=== PATIENT | male | born 1975 | race Caucasian/White ===

== ENCOUNTER 2016-08-24 17:35 | Emergency (ER) | payer OTHER ==
[2016-08-24] MEDS ORDERED: DIPH/PERTUSS(ACELL)/TETANUS VAC/PF 0.5 ML SYR (>=10YO) IM ONE (17:57)
--- NOTE | 2016-08-24 17:58 | ER Document Report ---
ED Medical Screen (RME) - General Chief Complaint: Hand Injury Stated Complaint: LEFT HAND INJURY Time seen by provider: 17:57 Mode of Arrival: Ambulatory Information source: Patient Notes: 41-year-old male had a large ejection screen top portion fall down on his left hand which punctured the skin causing bruising to the dorsal left hand over the proximal left metacarpal at 8:30 this morning.. Tetanus is not current. - Related Data Allergies/Adverse Reactions: No Known Allergies Allergy (Unverified 01/02/13 17:58) Past Medical History - Past Medical History Cardiac Medical History: Reports: Hx Hypercholesterolemia, Hx Hypertension Endocrine Medical History: Reports: Hx Diabetes Mellitus Type 2 Past Surgical History: Reports: Hx Orthopedic Surgery - Immunizations Hx Diphtheria, Pertussis, Tetanus Vaccination: Yes Physical Exam - Vital signs Vitals: Temp Pulse Resp BP Pulse Ox 98.3 F 100 18 148/105 H 99 08/24/16 17:55 08/24/16 17:55 08/24/16 17:55 08/24/16 17:55 08/24/16 17:55 Course - Vital Signs Vital signs: Temp Pulse Resp BP Pulse Ox 98.3 F 100 18 148/105 H 99 08/24/16 17:55 08/24/16 17:55 08/24/16 17:55 08/24/16 17:55 08/24/16 17:55
[2016-08-24] MEDS ORDERED: IBUPROFEN 800 MG TABLET PO ONE (17:59)
--- NOTE | 2016-08-24 18:53 | ER Document Report ---
ED Hand/Wrist Injury - General Chief Complaint: Hand Injury Stated Complaint: LEFT HAND INJURY Time seen by provider: 18:45 Mode of Arrival: Ambulatory Information source: Patient Notes: 41-year-old male presents to ED for pain in his left hand after a projection screen top portion fell down on his hand. There is a small puncture wound to his left hand. TRAVEL OUTSIDE OF THE [place] IN LAST 30 DAYS: No - HPI Injury to: Hand Onset: This morning - Around 8:30 this morning Where: Home, Indoors Timing: Still present Quality of pain: Sharp, Throbbing Severity: Moderate Pain Level: 3 Context: Blow - Related Data Allergies/Adverse Reactions: No Known Allergies Allergy (Unverified 01/02/13 17:58) Past Medical History - General Information source: Patient - Social History Smoking Status: Former Smoker Cigarette use (# per day): No Chew tobacco use (# tins/day): No Smoking Education Provided: No Frequency of alcohol use: Occasional Drug Abuse: None Occupation: [employer] Lives with: Family Family History: Reviewed & Not Pertinent Patient has suicidal ideation: No Patient has homicidal ideation: No - Past Medical History Cardiac Medical History: Reports: Hx Hypercholesterolemia, Hx Hypertension Pulmonary Medical History: Reports: None EENT Medical History: Reports: None Neurological Medical History: Reports: None Endocrine Medical History: Reports: Hx Diabetes Mellitus Type 2 Renal/ Medical History: Reports: None Malignancy Medical History: Reports None GI Medical History: Reports: None Musculoskeltal Medical History: Reports Hx Arthritis, Reports Hx Musculoskeletal Deformity, Reports Hx Musculoskeletal Trauma Skin Medical History: Reports None Psychiatric Medical History: Reports: None Traumatic Medical History: Reports: Hx Fractures - Toes and fingers left ulnar and radius Infectious Medical History: Reports: None Past Surgical History: Reports: Hx Orthopedic Surgery - Left shoulder - Immunizations Immunizations up to date: Yes Hx Diphtheria, Pertussis, Tetanus Vaccination: Yes - 08/24/2016 Review of Systems - Review of Systems Constitutional: No symptoms reported EENT: No symptoms reported Cardiovascular: No symptoms reported Respiratory: No symptoms reported Gastrointestinal: No symptoms reported Genitourinary: No symptoms reported Male Genitourinary: No symptoms reported Musculoskeletal: Other - Pain, bruising, and swelling to the left hand Skin: No symptoms reported Hematologic/Lymphatic: No symptoms reported Neurological/Psychological: No symptoms reported -: Yes All other systems reviewed and negative Physical Exam - Vital signs Vitals: Temp Pulse Resp BP Pulse Ox 98.3 F 100 18 148/105 H 99 08/24/16 17:55 08/24/16 17:55 08/24/16 17:55 08/24/16 17:55 08/24/16 17:55 Interpretation: Normal - General General appearance: Appears well, Alert - HEENT Head: Normocephalic, Atraumatic Eyes: Normal Pupils: PERRL - Respiratory Respiratory status: No respiratory distress Chest status: Nontender Breath sounds: Normal Chest palpation: Normal - Cardiovascular Rhythm: Regular Heart sounds: Normal auscultation Murmur: No - Abdominal Inspection: Normal Distension: No distension Bowel sounds: Normal Tenderness: Nontender Organomegaly: No organomegaly - Back Back: Normal, Nontender - Extremities General upper extremity: Normal temperature General lower extremity: Normal inspection, Nontender, Normal color, Normal ROM , Normal temperature, Normal weight bearing. No: Hemant's sign Wrist: Tender, Ecchymosis, Limited ROM Hand: Tender, Ecchymosis, No evidence of human bite, No evidence of FB, Swelling , Other - Small puncture wound back of left hand. No: Normal, Nontender, Abrasion, Deformity, Dislocation, Instability, Nail injury, Laceration, Tendon deficit - Neurological Neuro grossly intact: Yes Cognition: Normal Orientation: AAOx4 [place] Coma Scale Eye Opening: Spontaneous [place] Coma Scale Verbal: Oriented [place] Coma Scale Motor: Obeys Commands [place] Coma Scale Total: 15 Speech: Normal Motor strength normal: LUE, RUE, LLE, RLE Sensory: Normal - Psychological Associated symptoms: Normal affect, Normal mood - Skin Skin Temperature: Warm Skin Moisture: Dry Skin Color: Normal Course - Re-evaluation Re-evalutation: 08/24/16 20:43 Discussed x-ray with patient and family Will place patient on Keflex. He was given ibuprofen and tetanus immunization in the ED. His wound was cleaned with surgical scrub and saline and dressed with Kerlix and cling. - Vital Signs Vital signs: Temp Pulse Resp BP Pulse Ox 98.1 F 83 15 148/100 H 98 08/24/16 20:56 08/24/16 20:56 08/24/16 20:56 08/24/16 20:56 08/24/16 20:56 - Diagnostic Test Radiology reviewed: Image reviewed, Reports reviewed Discharge - Discharge Clinical Impression: Contusion of left hand Qualifiers: Encounter type: initial encounter Qualified Code(s): S60.222A - Contusion of left hand, initial encounter Puncture wound of left hand Qualifiers: Encounter type: initial encounter Qualified Code(s): S61.432A - Puncture wound without foreign body of left hand, initial encounter Condition: Stable Disposition: HOME, SELF-CARE Instructions: Family Physicians / Practices Additional Instructions: CONTUSION: Your injury has resulted in a contusion -- a crushing of the deep tissues. No injury to important structures was detected during the physician's exam. Contusions vary in the amount of pain they cause, and in the length of time required for healing. Typically, the area will become bruised, and will remain painful to touch for two or three weeks. However, most patients are back to working and playing within a few days. After the initial period of rest and cold-packs, your symptoms (together with the doctor's recommendations) will determine how rapidly you can get back to full activity. Usually this means "do what feels okay, but don't do things that hurt." If re-examination was recommended, it's important to follow up as instructed. Call the doctor or return any time if pain increases, if swelling becomes severe, if you develop numbness or weakness in an injured extremity, or if any other alarming symptoms occur. TETANUS IMMUNIZATION GIVEN: You have been given an immunization against tetanus. Please record this in your records. In general, a booster is needed only once every 10 years. The tetanus shot protects against tetanus or "lockjaw," which is a complication of certain wound infections (the tetanus shot cannot protect against the actual infection). The immunization site may become warm and red due to local reaction. If this occurs, apply warm compresses and take aspirin or ibuprofen to reduce inflammation and discomfort. Return for evaluation if the reaction becomes severe. Cephalexin The antibiotic you've been prescribed is a member of the cephalosporin class. This type of antibiotic covers a wide variety of infections, including those of the skin, lungs, and urinary tract. It's useful for staph infections. This antibiotic is slightly similar to the penicillin family. In rare cases , a person who is allergic to penicillin will also be allergic to this medication. If you have had a severe allergic reaction to penicillin, and have not taken this antibiotic since that time, notify your doctor. Antibiotics which cover many germs ("broad spectrum" antibiotics) are more likely to cause diarrhea or "yeast" infections. Women prone to vaginal yeast problems may suffer an attack after taking this antibiotic. In infants, oral thrush (white spots "stuck" on the cheek) or yeast diaper rash may result. See your doctor if these problems occur. Call at once if you develop itching, hives , shortness of breath, or lightheadedness. Soap Cleansing Gently wash the wound daily using a mild soap (like Ivory, Phisoderm, Neutrogena). Use warm water, rubbing gently until all debris, ooze, and crusting have been washed from the wound. Allow to dry briefly (about 10 minutes) after cleaning. Repeat this cleansing at least three times a day for the first two days and then once or twice a day. Antibiotic Ointment Protection Your wounds are such that dressing them is not practical or optional. After cleansing, you should apply a thin coating of antibiotic ointment ( Bacitracin, not Neosporin) to the wounds at least three times daily. This lessens infection risk, and may decrease the amount of scarring. Use a q-tip or dull butter knife, not your finger, to apply this ointment. Any debris or ooze which builds up in the ointment should be gently rubbed off with a sterile gauze pad. Harder crusting may need to be gently scrubbed off with a clean wash cloth with soap and warm water, perhaps applying a warm, wet wash cloth to the wound for ten minutes first. Development of redness, severe itching, or blistering may mean allergy to the ointment. See the doctor. ICE & ELEVATION: Apply ice packs frequently against the painful area. Many different schedules are recommended, such as "20 minutes on, 20 minutes off" or "one hour ice, two hours rest." If you need to work, you may need to go longer between ice treatments. You should plan to have the area ice packed AT LEAST one- fourth of the time. The ice should be applied over the wrap, tape, or splint, or over a layer of cloth -- not directly against the skin. Some ice bags have a built-in cloth and can be put directly on the skin. Your injured part should be elevated as much as possible over the next 48 hours. Try to keep the injury above the level of the heart. Avoid use of the injured area. Elevation and rest will decrease the swelling. USE OF [id number] IBUPROFEN: Ibuprofen (Advil, Nuprin, Medipren, Motrin IB) is a medication for fever and pain control. In addition, it has anti- inflammatory effects which may be beneficial, especially in the treatment of injuries. It's best to take ibuprofen with food. Persons with ulcer disease or allergy to aspirin should notify their physician of this before taking ibuprofen. Ibuprofen can be given every four to six hours, for a total of four doses daily. Age Pain or fever dose Antiinflammatory dose 6-8 yr 200 mg (1 tab) 200 mg (1 tab) 9-11 yr 200 mg (1 tab) 200-400 mg (1-2 tab) 11-14 yr 200-400 mg (1-2 tab) 400 mg (2 tab) 15-adult 400 mg (2 tab) 600 mg (3 tab) FOLLOW-UP CARE: If you have been referred to a physician for follow-up care, call the physician s office for an appointment as you were instructed or within the next two days. If you experience worsening or a significant change in your symptoms, notify the physician immediately or return to the Emergency Department at any time for re-evaluation. Prescriptions: Ibuprofen 800 mg PO Q8HP PRN #20 tablet PRN Reason: Cephalexin Monohydrate [Keflex 500 mg Capsule] 500 mg PO QID #20 capsule Forms: Elevated Blood Pressure, Smoking Cessation Education, Return to Work
[2016-08-24 20:58] VITALS: BP 148/100
== END 2016-08-24 20:56 | disposition home or self-care (01) ==
LOC: ER 17:35
DX: S60.222A Contusion of left hand, initial encounter (principal); S61.432A Puncture wound without foreign body of left hand, initial encounter; Z87.891 Personal history of nicotine dependence; E78.00 Pure hypercholesterolemia, unspecified; I10 Essential (primary) hypertension; X58.XXXA Exposure to other specified factors, initial encounter
CPT/HCPCS: 90471; 90715; 99283

== ENCOUNTER 2017-01-18 17:35 | Emergency (ER) | payer OTHER ==
--- NOTE | 2017-01-18 18:06 | ER Document Report ---
ED Medical Screen (RME) - General Chief Complaint: Testicular Swelling Stated Complaint: SWOLLEN TESTICLES Time Seen by Provider: 01/18/17 17:58 Notes: Patient complains of painful swelling of the right scrotum that started on Wednesday. He relates the progression of his illness to formation of knots that apparently cause infection, but it usually do not last very long and clear up on their own. He says these began in the right pubic region and go down the right side of the testicle. His testicle itself does not appear to be swollen or tender. Patient unaware of any fever. In triage, afebrile, but heart rate 140 and I verified that listening to the patient's chest. I examined the patient's scrotum and testicles and the testicles do not appear to be primarily involved. The left testicle was not tender. The right one is only slightly tender but they are of equal size and the patient has soft tissue swelling and erythema of the right side of the scrotum. Is most exquisitely tender area as at the upper portion where the scrotum attaches to the groin on the right side which is swollen and very tender. TRAVEL OUTSIDE OF THE [place] IN LAST 30 DAYS: No - Related Data Allergies/Adverse Reactions: No Known Allergies Allergy (Unverified 01/02/13 17:58) Past Medical History - Past Medical History Cardiac Medical History: Reports: Hx Hypercholesterolemia, Hx Hypertension Endocrine Medical History: Reports: Hx Diabetes Mellitus Type 2 Renal/ Medical History: Denies: Hx Peritoneal Dialysis Musculoskeltal Medical History: Reports Hx Arthritis, Reports Hx Musculoskeletal Deformity, Reports Hx Musculoskeletal Trauma Traumatic Medical History: Reports: Hx Fractures - Toes and fingers left ulnar and radius Past Surgical History: Reports: Hx Orthopedic Surgery - Left shoulder - Immunizations Immunizations up to date: Yes Hx Diphtheria, Pertussis, Tetanus Vaccination: Yes - 08/24/2016 Physical Exam - Vital signs Vitals: Temp Pulse Resp BP Pulse Ox 98.7 F 141 H 22 H 153/92 H 97 01/18/17 17:41 01/18/17 17:41 01/18/17 17:41 01/18/17 17:41 01/18/17 17:41 Course - Vital Signs Vital signs: Temp Pulse Resp BP Pulse Ox 98.7 F 141 H 22 H 153/92 H 97 01/18/17 17:41 01/18/17 17:41 01/18/17 17:41 01/18/17 17:41 01/18/17 17:41
[2017-01-18] MEDS ORDERED: MORPHINE SULFATE 10 MG/ML INJ IV ONE (18:32)
[2017-01-18] MEDS: NORMAL SALINE 1000 ML 1,000 ML IV PRN ×2 (18:32→18:46)
[2017-01-18] MEDS ORDERED: MORPHINE SULFATE 10 MG/ML INJ ONE (18:33)
--- NOTE | 2017-01-18 19:53 | ER Document Report ---
ED GI/ - General Chief Complaint: Testicular Swelling Stated Complaint: SWOLLEN TESTICLES Time Seen by Provider: 01/18/17 17:58 Notes: The patient is a 41-year-old male, past medical history CAD, diabetes, presents with 2 days of worsening B/L scrotal pain, worse on the right. In addition, he noticed some swelling in his right groin and started to have nausea and vomiting earlier today. He denies fevers, flank pain, hematuria, dysuria, diarrhea or constipation. TRAVEL OUTSIDE OF THE [place] IN LAST 30 DAYS: No - Related Data Allergies/Adverse Reactions: No Known Allergies Allergy (Unverified 01/02/13 17:58) Past Medical History - General Information source: Patient - Social History Smoking Status: Never Smoker Chew tobacco use (# tins/day): No Frequency of alcohol use: None Drug Abuse: None Family History: Reviewed & Not Pertinent Patient has suicidal ideation: No Patient has homicidal ideation: No - Past Medical History Cardiac Medical History: Reports: Hx Hypercholesterolemia, Hx Hypertension Endocrine Medical History: Reports: Hx Diabetes Mellitus Type 2 Renal/ Medical History: Denies: Hx Peritoneal Dialysis Musculoskeltal Medical History: Reports Hx Arthritis, Reports Hx Musculoskeletal Deformity, Reports Hx Musculoskeletal Trauma Traumatic Medical History: Reports: Hx Fractures - Toes and fingers left ulnar and radius Past Surgical History: Reports: Hx Orthopedic Surgery - Left shoulder - Immunizations Immunizations up to date: Yes Hx Diphtheria, Pertussis, Tetanus Vaccination: Yes - 08/24/2016 Review of Systems - Review of Systems Notes: REVIEW OF SYSTEMS: CONSTITUTIONAL: -fevers, -chills EENT: -eye pain, -difficulty swallowing, -nasal congestion CARDIOVASCULAR:-chest pain, -syncope. RESPIRATORY: -cough, -SOB GASTROINTESTINAL: -abdominal pain, - nausea, -vomiting, -diarrhea GENITOURINARY: +B/L scrotal pain, -dysuria, -hematuria MUSCULOSKELETAL: -back pain, -neck pain SKIN: -rash or skin lesions. HEMATOLOGIC: -easy bruising or bleeding. LYMPHATIC: -swollen, enlarged glands. NEUROLOGICAL: -altered mental status or loss of consciousness, -headache, - neurologic symptoms PSYCHIATRIC: -anxiety, -depression. ALL OTHER SYSTEMS REVIEWED AND NEGATIVE. Physical Exam - Vital signs Vitals: Temp Pulse Resp BP Pulse Ox 98.7 F 141 H 22 H 153/92 H 97 01/18/17 17:41 01/18/17 17:41 01/18/17 17:41 01/18/17 17:41 01/18/17 17:41 - Notes Notes: PHYSICAL EXAMINATION: GENERAL: Well-appearing, well-nourished and in no acute distress. HEAD: Atraumatic, normocephalic. EYES: Pupils equal round and reactive to light, extraocular movements intact, sclera anicteric, conjunctiva are normal. ENT: nares patent, oropharynx clear without exudates. Moist mucous membranes. NECK: Normal range of motion, supple without lymphadenopathy LUNGS: Breath sounds clear to auscultation bilaterally and equal. No wheezes rales or rhonchi. HEART: Tachycardic, regular rhythm ABDOMEN: Soft, nontender, normoactive bowel sounds. No guarding, no rebound. No masses appreciated. : B/L scrotal swelling, normal lie of testicles EXTREMITIES: Normal range of motion, no pitting or edema. No cyanosis. NEUROLOGICAL: Cranial nerves grossly intact. Normal speech, normal gait. Normal sensory and motor exams. PSYCH: Normal mood, normal affect. SKIN: Redness in right groin Course - Re-evaluation Re-evalutation: Patient with bilateral hydroceles that are possibly infected. 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 CT abdomen and pelvis does not show any evidence of gas or any other acute changes. Patient feels much better after antibiotics and pain control. His tachycardia resolved after fluids. Instructed him to take the full course of Cipro and follow-up with urology tomorrow. Given strict return precautions and he understands. - Vital Signs Vital signs: Temp Pulse Resp BP Pulse Ox 99.1 F 100 17 140/77 H 95 01/19/17 00:09 01/19/17 00:09 01/19/17 00:09 01/19/17 00:09 01/19/17 00:09 - Laboratory Result Diagrams: 01/18/17 18:26 01/18/17 18:26 Laboratory results interpreted by me: 01/18/17 01/18/17 01/18/17 18:26 18:26 20:09 WBC 17.2 H RBC 5.84 H Seg Neuts % (Manual) 83 H Band Neutrophils % 6 H Lymphocytes % (Manual) 3 L Abs Neuts (Manual) 15.3 H VBG pCO2 Sodium 134.8 L Chloride 92 L Carbon Dioxide 21 L Anion Gap 22 H Glucose 371 H Total Bilirubin 1.4 H Direct Bilirubin 0.6 H AST 16 L Urine Protein 30 H Urine Glucose (UA) >=500 H Urine Ketones 80 H 01/18/17 21:25 WBC RBC Seg Neuts % (Manual) Band Neutrophils % Lymphocytes % (Manual) Abs Neuts (Manual) VBG pCO2 34.3 L Sodium Chloride Carbon Dioxide Anion Gap Glucose Total Bilirubin Direct Bilirubin AST Urine Protein Urine Glucose (UA) Urine Ketones - Diagnostic Test Radiology reviewed: Image reviewed, Reports reviewed Radiology results interpreted by me: US: B/L hydroceles, possibly infected CT A/P: NAD Discharge - Discharge Clinical Impression: Hydrocele Qualifiers: Hydrocele type: infected Qualified Code(s): N43.1 - Infected hydrocele Condition: Stable Disposition: HOME, SELF-CARE Additional Instructions: Hydrocele You have been diagnosed as having a hydrocele. The sac that holds the testicles is called the scrotum. A hydrocele is usually a painless collection of fluid in the membrane that covers the testicle(s). This may be present at or develop later on in life. The cause is usually unknown. In infants a hydrocele can be due to a miscommunication of the fluid surrounding the testes. In adults a hydrocele may form due to injury or inflammation of surrounding structures. Most hydroceles require no treatment, and usually resolve on their own. However, sometimes surgical intervention is recommended for recurrent, or for unusually large hydroceles. The surgery to fix a hydrocele is a minor procedure and usually takes about 1 and 1/2 hours. Prescriptions: Ciprofloxacin HCl [Cipro 500 mg Tablet] 500 mg PO BID #10 tablet Hydrocodone/Acetaminophen [[place] 5-325 mg Tablet] 1 tab PO Q6H PRN #10 tablet PRN Reason: Ondansetron [Zofran Odt 4 mg Tablet] 1 - 2 tab PO Q4H PRN #15 tab.rapdis PRN Reason: For Nausea/Vomiting Referrals: RITU MOSER PA-C [Primary Care Provider] - Follow up as needed [facility] [Provider Group] - Follow up as needed
--- NOTE | 2017-01-18 20:05 | RADIOLOGY REPORT (SQ) ---
EXAM DESCRIPTION: U/S SCROTUM W/DOPPLER COMPLETED DATE/TIME: 01/18/2017 7:46 pm REASON FOR STUDY: right testicular pain and swelling COMPARISON: None. TECHNIQUE: Static and realtime garza scale imaging of the scrotum and testes. Selected color Doppler and spectral images recorded to document blood flow. LIMITATIONS: None. FINDINGS: RIGHT: TESTICLE: Normal size. Normal echotexture. Normal blood flow. No mass. EPIDIDYMIS: Normal. HYDROCELE OR VARICOCELE: There is a hypoechoic area containing internal debris measuring 3.7 x 2.1 x 1.2 cm. Prominent vascular structures are identified. HERNIA OR EXTRA-TESTICULAR MASS: No. OTHER: No other significant finding. LEFT: TESTICLE: Normal size. Normal echotexture. Normal blood flow. No mass. EPIDIDYMIS: Normal. HYDROCELE OR VARICOCELE: There is a hypoechoic area containing internal debris measuring 3.0 x 1.9 x 1.8 cm. Prominent vascular structures are identified. HERNIA OR EXTRA-TESTICULAR MASS: No. OTHER: No other significant finding. IMPRESSION: Bilateral hypoechoic areas containing internal debris is noted above. The appearance is most consistent with bilateral complicated hydroceles. The possibility of a superimposed infectious process cannot be excluded. Clinical correlation is recommended. No evidence for a testicular tors ion or mass is seen. TECHNICAL DOCUMENTATION: JOB ID: [id number] [employer]- All Rights Reserved
[2017-01-18 20:26] LABS: APPEARANCE,URINE CLEAR; BILIRUBIN,URINE NEGATIVE (NEGATIVE); GLUCOSE, URINE >=500 mg/dL (NEGATIVE); KETONES,URINE 80 mg/dL (NEGATIVE); LEUKOCYTE ESTERASE,URINE NEGATIVE (NEGATIVE); NITRITE,URINE NEGATIVE (NEGATIVE); PROTEIN,URINE 30 mg/dL (NEGATIVE); URINE SPECIFIC GRAVITY 1.031; UROBILINOGEN,URINE NEGATIVE mg/dL (<2.0)
[2017-01-18 20:33] LABS: HEMATOCRIT 49.1 % (37.9-51.0); HEMOGLOBIN 16.5 g/dL (13.5-17.0); HGB HCT DIFFERENCE 0.4; MEAN CORPUSCULAR HEMOGLOBIN 28.3 pg (27.0-33.4); MEAN CORPUSCULAR HGB CONC 33.7 g/dL (32.0-36.0); MEAN CORPUSCULAR VOLUME 84 fl (80-97); RED BLOOD COUNT 5.84 10^6/uL (4.35-5.55); WHITE BLOOD COUNT 17.2 10^3/uL (4.0-10.5)
[2017-01-18 20:35] LABS: ALANINE AMINOTRANSFERASE 21 U/L (21-72); ALBUMIN 4.3 g/dL (3.5-5.0); ALKALINE PHOSPHATASE 110 U/L (38-126); ASPARTATE AMINO TRANSFERASE 16 U/L (17-59); BILIRUBIN,DIRECT 0.6 mg/dL (0.0-0.4); BILIRUBIN,TOTAL 1.4 mg/dL (0.2-1.3); BLOOD UREA NITROGEN 17 mg/dL (7-20); GLUCOSE 371 mg/dL (75-110); TOTAL PROTEIN 7.5 g/dL (6.3-8.2)
[2017-01-18 20:44] LABS: CARBON DIOXIDE 21 mmol/L (22-30); CHLORIDE 92 mmol/L (98-107); POTASSIUM 4.6 mmol/L (3.6-5.0); SODIUM 134.8 mmol/L (137-145)
[2017-01-18 20:46] LABS: ANION GAP 22 (5-19)
[2017-01-18 20:50] LABS: BAND NEUTROPHILS % (MANUAL) 6 % (3-5); BASOPHILS % (MANUAL) 0 % (0-2); EOSINOPHILS % (MANUAL) 0 % (0-6); LYMPHOCYTES % (MANUAL) 3 % (13-45); TOTAL CELLS COUNTED 100
[2017-01-18 20:55] LABS: PLATELET CLUMPS PRESENT; POIKILOCYTOSIS SLIGHT; POLYCHROMASIA SLIGHT; TARGET CELLS SLIGHT
[2017-01-18] MEDS ORDERED: KETOROLAC TROMETHAMINE INJ/PF 30 MG/1 ML SDV IV ONE (20:55)
[2017-01-18] MEDS ORDERED: CIPROFLOXACIN HCL 500 MG TABLET PO ONE (20:55)
[2017-01-18] MEDS ORDERED: VANCOMYCIN HCL INJ 1000 MG VIAL IV ONE (21:11)
[2017-01-18] MEDS ORDERED: PIPERACILLIN/TAZOBACTAM 3.375 GM VIAL IV ONE (21:11)
[2017-01-18 21:42] LABS: VENOUS BLOOD BASE EXCESS -4.1 mmol/L; VENOUS BLOOD PCO2 34.3 mmHg (35-63); VENOUS BLOOD PH 7.38 (7.30-7.42)
[2017-01-18] MEDS ORDERED: CLINDAMYCIN 600 MG/D5W RTU 50 ML IV SCH (22:00)
--- NOTE | 2017-01-18 23:39 | RADIOLOGY REPORT (SQ) ---
EXAM DESCRIPTION: CT ABD/PELVIS WITH IV ONLY COMPLETED DATE/TIME: 01/18/2017 10:36 pm REASON FOR STUDY: RLQ pain and swelling, crepitus in groin, Diabetes COMPARISON: None. TECHNIQUE: CT scan of the abdomen and pelvis performed using helical scanning technique with dynamic intravenous contrast injection. No oral contrast. Images reviewed with lung, soft tissue, and bone windows. Reconstructed coronal and sagittal MPR images reviewed. Delayed images for evaluation of the urinary system also acquired. All images stored on PACS. All CT scanners at this facility use dose modulation, iterative reconstruction, and/or weight based d osing when appropriate to reduce radiation dose to as low as reasonably achievable (ALARA). [facility]: Dose Right [facility]: CareDose [facility]: Dose Right [facility]: Teradose 4D [facility]: [employer] CONTRAST TYPE AND DOSE: 100mL Isovue 370 RENAL FUNCTION: Creatinine 0.72 RADIATION DOSE: 36.26mGy. LIMITATIONS: None. FINDINGS: LOWER CHEST: There are some minimal linear densities in the lung bases which could represe nt atelectatic changes or scarring. LIVER: Normal size. No masses or dilated ducts. SPLEEN: Normal size. No focal lesions. PANCREAS: No masses. No significant calcifications. No adjacent inflammation or peripancreatic fluid collections. Pancreatic duct not dilated. GALLBLADDER: No identified stones by CT criteria. No inflammatory changes to suggest cholecystitis. ADRENAL GLANDS: No significant masses or asymmetry. RIGHT KIDNEY AND URETER: No solid masses. No significant calcifications. No hydronephrosis or hyd roureter. LEFT KIDNEY AND URETER: No solid masses. No significant calcifications. No hydronephrosis or hydr oureter. AORTA AND VESSELS: No aneurysm. No dissection. Renal arteries, SMA, celiac without stenosis. RETROPERITONEUM: No retroperitoneal adenopathy, hemorrhage or masses. BOWEL AND PERITONEAL CAVITY: No masses or inflammatory changes. No free fluid or peritoneal masses. A moderate amount a gas and fecal material is identified throughout the colon APPENDIX: Normal. PELVIS: No mass or free fluid. Normal bladder. ABDOMINAL WALL: No masses. No hernias. BONES: No significant or acute findings. OTHER: No other significant finding. IMPRESSION: NO SIGNIFICANT OR ACUTE FINDING IN THE ABDOMEN OR PELVIS ON CT SCAN WITH IV CONTRAST. TECHNICAL DOCUMENTATION: JOB ID: [id number] Quality ID # [id number]: Final reports with documentation of one or more dose reduction techniques (e.g., Au tomated exposure control, adjustment of the mA and/or kV according to patient size, use of iterative reconstruction technique) 2010 [employer]- All Rights Reserved
[2017-01-19 00:10] VITALS: BP 140/77
== END 2017-01-19 00:05 | disposition home or self-care (01) ==
LOC: ER 17:35
DX: N43.1 Infected hydrocele (principal); R11.2 Nausea with vomiting, unspecified; R00.0 Tachycardia, unspecified; D72.825 Bandemia; E11.65 Type 2 diabetes mellitus with hyperglycemia; I25.10 Atherosclerotic heart disease of native coronary artery without angina pectoris; I10 Essential (primary) hypertension
CPT/HCPCS: 99284; 96361; 96375; 96365; 96367; 36415; 87040; 87086; 85025; 80053; 81001; 82803; 83605; 76870; 93976; 74177; J1885; J2270; J7030; J3370; J2543

== ENCOUNTER 2017-01-21 13:14 | Inpatient (IN) | payer OTHER ==
[2017-01-21] MEDS ORDERED: VANCOMYCIN HCL INJ 1000 MG VIAL IV ONE (14:29)
[2017-01-21] MEDS ORDERED: HYDROMORPHONE HCL INJ/PF 2 MG/ML AMPULE IV ONE (14:29)
--- NOTE | 2017-01-21 14:29 | ER Document Report ---
ED Medical Screen (RME) - General Chief Complaint: Scrotal Pain, Acute Onset Stated Complaint: TESTICULAR PAIN Time Seen by Provider: 01/21/17 14:28 Mode of Arrival: Ambulatory Information source: Patient Notes: 41-year-old male recent visit for testicular pain swelling with worsening symptoms. Patient notes he was treated with antibiotics has been taking them appropriately. I have greeted and performed a rapid initial assessment of this patient. A comprehensive ED assessment and evaluation of the patient, analysis of test results and completion of the medical decision making process will be conducted by additional ED providers. PHYSICAL EXAMINATION: GENERAL: Well-appearing, well-nourished and in no acute distress. HEAD: Atraumatic, normocephalic. EYES: Pupils equal round extraocular movements intact, conjunctiva are normal. ENT: Nares patent NECK: Normal range of motion LUNGS: No respiratory distress Musculoskeletal: Normal range of motion bilateral testicular enlargement scrotal edema NEUROLOGICAL: Normal speech, normal gait. PSYCH: Normal mood, normal affect. SKIN: Warm, Dry, normal turgor, no rashes or lesions noted. TRAVEL OUTSIDE OF THE [place] IN LAST 30 DAYS: No - Related Data Allergies/Adverse Reactions: No Known Allergies Allergy (Unverified 01/02/13 17:58) Past Medical History - Past Medical History Cardiac Medical History: Reports: Hx Hypercholesterolemia, Hx Hypertension Endocrine Medical History: Reports: Hx Diabetes Mellitus Type 2 Renal/ Medical History: Denies: Hx Peritoneal Dialysis Musculoskeltal Medical History: Reports Hx Arthritis, Reports Hx Musculoskeletal Deformity, Reports Hx Musculoskeletal Trauma Traumatic Medical History: Reports: Hx Fractures - Toes and fingers left ulnar and radius Past Surgical History: Reports: Hx Orthopedic Surgery - Left shoulder - Immunizations Immunizations up to date: Yes Hx Diphtheria, Pertussis, Tetanus Vaccination: Yes - 08/24/2016 Physical Exam - Vital signs Vitals: Temp Pulse Resp BP Pulse Ox 98.4 F 125 H 18 172/97 H 99 01/21/17 13:44 01/21/17 13:44 01/21/17 13:44 01/21/17 13:44 01/21/17 13:44 Course - Vital Signs Vital signs: Temp Pulse Resp BP Pulse Ox 98.4 F 125 H 18 172/97 H 99 01/21/17 13:44 01/21/17 13:44 01/21/17 13:44 01/21/17 13:44 01/21/17 13:44
[2017-01-21 15:23] LABS: ABSOLUTE BASOPHILS # (AUTO) 0.1 10^3/uL (0.0-0.2); ABSOLUTE EOSINOPHILS # (AUTO) 0.1 10^3/uL (0.0-0.6); ABSOLUTE LYMPHOCYTES (AUTO) 1.1 10^3/uL (0.5-4.7); ABSOLUTE NEUT (AUTO) 11.3 10^3/uL (1.7-8.2); BASOPHILS % (AUTO) 0.4 % (0-2); EOSINOPHILS % (AUTO) 0.4 % (0-6); HEMATOCRIT 45.1 % (37.9-51.0); HEMOGLOBIN 15.7 g/dL (13.5-17.0); LYMPHOCYTES % (AUTO) 7.9 % (13-45); MEAN CORPUSCULAR HEMOGLOBIN 28.8 pg (27.0-33.4); MEAN CORPUSCULAR HGB CONC 34.8 g/dL (32.0-36.0); MEAN CORPUSCULAR VOLUME 83 fl (80-97); MONOCYTES % (AUTO) 7.2 % (3-13); RED BLOOD COUNT 5.46 10^6/uL (4.35-5.55); RED CELL DISTRIBUTION WIDTH 12.6 % (11.5-14.0); SEGMENTED NEUTROPHILS % (AUTO) 84.1 % (42-78); WHITE BLOOD COUNT 13.5 10^3/uL (4.0-10.5)
[2017-01-21 15:47] LABS: ALANINE AMINOTRANSFERASE 23 U/L (21-72); ALBUMIN 4.2 g/dL (3.5-5.0); ALKALINE PHOSPHATASE 130 U/L (38-126); ASPARTATE AMINO TRANSFERASE 13 U/L (17-59); BILIRUBIN,DIRECT 0.5 mg/dL (0.0-0.4); BILIRUBIN,TOTAL 1.2 mg/dL (0.2-1.3); BLOOD UREA NITROGEN 11 mg/dL (7-20); CALCIUM 9.8 mg/dL (8.4-10.2); CHLORIDE 95 mmol/L (98-107); CREATININE RESULT 0.64 mg/dL (0.52-1.25); GLUCOSE 357 mg/dL (75-110); POTASSIUM 4.6 mmol/L (3.6-5.0); TOTAL PROTEIN 7.7 g/dL (6.3-8.2)
[2017-01-21 15:56] LABS: CARBON DIOXIDE 15 mmol/L (22-30); SODIUM 131.8 mmol/L (137-145)
[2017-01-21 16:02] LABS: ANION GAP 22 (5-19)
[2017-01-21] MEDS: NORMAL SALINE 1000 ML 1,000 ML IV PRN (17:44)
[2017-01-21 18:37] LABS: VENOUS BLOOD HCO3 16.8 mmol/L (20-32); VENOUS BLOOD PCO2 33.1 mmHg (35-63); VENOUS BLOOD PH 7.32 (7.30-7.42)
[2017-01-21] MEDS ORDERED: VANCOMYCIN HCL INJ 1000 MG VIAL ONE (19:03)
[2017-01-21 19:05] LABS: APPEARANCE,URINE CLEAR; BILIRUBIN,URINE NEGATIVE (NEGATIVE); GLUCOSE, URINE 500 mg/dL (NEGATIVE); KETONES,URINE 300 mg/dL (NEGATIVE); NITRITE,URINE NEGATIVE (NEGATIVE); PROTEIN,URINE NEGATIVE (NEGATIVE); URINE SPECIFIC GRAVITY 1.025; UROBILINOGEN,URINE NEGATIVE mg/dL (<2.0)
[2017-01-21 19:06] LABS: BACTERIA,URINE TRACE /HPF; LEUKOCYTE ESTERASE,URINE NEGATIVE (NEGATIVE); RBC,URINE 0-1 /HPF; WBC,URINE NONE SEEN /HPF
--- NOTE | 2017-01-21 19:06 | RADIOLOGY REPORT (SQ) ---
EXAM DESCRIPTION: CT PELVIS WITH COMPLETED DATE/TIME: 01/21/2017 6:38 pm REASON FOR STUDY: Eval for Perineal abscess COMPARISON: None. TECHNIQUE: CT scan of the pelvis performed using helical scanning technique with dynamic intravenous contrast injection. No oral contrast. Images reviewed with soft tissue and bone windows. Reconstruc sarah coronal and sagittal MPR images reviewed. Delayed images for evaluation of the urinary system als o acquired. All images stored on PACS. All CT scanners at this facility use dose modulation, iterative reconstruction, and/or weight based d osing when appropriate to reduce radiation dose to as low as reasonably achievable (ALARA). [facility]: Dose Right [facility]: CareDose [facility]: Dose Right [facility]: Teradose 4D [facility]: [employer] CONTRAST TYPE AND DOSE: 100mL Isovue 370- low osmolar. RENAL FUNCTION: BUN 11 creatinine 0.64. RADIATION DOSE: 36.73mGy. LIMITATIONS: None. FINDINGS: PELVIC BONES: No acute fracture. No worrisome bone lesions. VISUALIZED SPINE: No acute findings. HIP(S): No acute fracture or dislocation. No worrisome bone lesions. PELVIC SOFT TISSUES: No significant findings. EXTRAPELVIC SOFT TISSUES: There is a fluid collection in the right perianal soft tissues. This measu res 1.7 cm in thickness and 10 cm in AP dimension. OTHER: No other significant finding. IMPRESSION: FLUID COLLECTION IN THE RIGHT PERIANAL SOFT TISSUES SUSPICIOUS FOR ABSCESS. TECHNICAL DOCUMENTATION: JOB ID: [id number] Quality ID # [id number]: Final reports with documentation of one or more dose reduction techniques (e.g., Au tomated exposure control, adjustment of the mA and/or kV according to patient size, use of iterative reconstruction technique) 2010 [employer]- All Rights Reserved
[2017-01-21] MEDS ORDERED: ERTAPENEM SODIUM INJ 1 GM VIAL IV ONE (19:18)
[2017-01-21] MEDS ORDERED: NORMAL SALINE 1000 ML 1,000 ML IV ONE (19:20)
[2017-01-21] MEDS ORDERED: INSULIN REG, HUMAN 100 UNIT/ML 3 ML VIAL (PYX) IV ONE (19:22)
--- NOTE | 2017-01-21 19:27 | ER Document Report ---
ED GI/ - General Chief Complaint: Scrotal Pain, Acute Onset Stated Complaint: TESTICULAR PAIN Time Seen by Provider: 01/21/17 14:28 Mode of Arrival: Ambulatory Notes: This is a 41-year-old male with history of coronary artery disease and diabetes who presents with approximately 5 days of scrotal pain and swelling. He notes she is having some increasing testicular enlargement as well. He was seen 3 days ago started on Cipro but the pain and swelling have persisted and slightly worsened. He has had some nausea and vomiting which overall is better. Denies fever. Pain is moderately severe. He had noted a little bit of discharge at the base of the scrotum. Denies urethral discharge. Evaluation prior did not show any evidence of abscess though his white count was 17. TRAVEL OUTSIDE OF THE [place] IN LAST 30 DAYS: No - Related Data Allergies/Adverse Reactions: No Known Allergies Allergy (Unverified 01/02/13 17:58) Past Medical History - General Information source: Patient - Social History Smoking Status: Former Smoker Chew tobacco use (# tins/day): No Frequency of alcohol use: Occasional Drug Abuse: None Family History: Reviewed & Not Pertinent Patient has suicidal ideation: No Patient has homicidal ideation: No - Past Medical History Cardiac Medical History: Reports: Hx Hypercholesterolemia, Hx Hypertension Endocrine Medical History: Reports: Hx Diabetes Mellitus Type 2 Renal/ Medical History: Denies: Hx Peritoneal Dialysis Musculoskeltal Medical History: Reports Hx Arthritis, Reports Hx Musculoskeletal Deformity, Reports Hx Musculoskeletal Trauma Traumatic Medical History: Reports: Hx Fractures - Toes and fingers left ulnar and radius Past Surgical History: Reports: Hx Orthopedic Surgery - Left shoulder - Immunizations Immunizations up to date: Yes Hx Diphtheria, Pertussis, Tetanus Vaccination: Yes - 08/24/2016 Review of Systems - Review of Systems -: Yes All other systems reviewed and negative Physical Exam - Vital signs Vitals: Temp Pulse Resp BP Pulse Ox 98.4 F 125 H 18 172/97 H 99 01/21/17 13:44 01/21/17 13:44 01/21/17 13:44 01/21/17 13:44 01/21/17 13:44 - Notes Notes: GENERAL: VS as per nursing doc. Well-appearing, well-nourished and in no acute distress. HEAD: Atraumatic, normocephalic. EYES: Pupils equal round and reactive to light, extraocular movements intact, sclera anicteric, no conjunctival injection or discharge. ENT: Nares patent, oropharynx clear without exudates, moist mucous membranes. NECK: Normal range of motion, supple without lymphadenopathy. LUNGS: Breath sounds clear to auscultation bilaterally and equal. No wheezes rales or rhonchi. HEART: Regular rate and rhythm without murmurs. ABDOMEN: Soft, non-tender, normoactive bowel sounds. No guarding, no rebound. No masses appreciated. No Le Grand sign. : There is moderate edema to the testicles which are mildly tender slightly indurated and erythematous. No urethral discharge is noted. There is more severe tenderness and edema noted in the perineum between the base of the scrotum and rectum. No obvious rectal involvement but appears consistent with abscess at that region. BACK: No CVA tenderness. EXTREMITIES: Normal range of motion, no calf tenderness, no edema. NEUROLOGICAL: Cranial nerves grossly intact. Normal speech. Normal sensory and motor exams. No gross cerebellar abnormalities. PSYCH: Normal mood, normal affect. SKIN: Warm, dry, normal turgor, no lesions noted. Course - Re-evaluation Re-evalutation: 01/21/17 19:27 Patient's white blood count has decreased from 17-13.5 but labs with beta hydroxybutyrate pending are consistent with some mild DKA. He will be given fluids further as well as insulin. He had vancomycin ordered during triage is receiving that and Invanz has been ordered as per surgery on-call. I spoke with Dr. Payton who will see and evaluate the patient. His last water intake was approximately between 3 and 4 PM and he had a peanut butter and jelly sandwich at noon. He has been asked to be n.p.o. and he voices understanding of this. On recheck still appears nontoxic in appearance. - Vital Signs Vital signs: Temp Pulse Resp BP Pulse Ox 98.4 F 125 H 18 172/97 H 99 01/21/17 13:44 01/21/17 13:44 01/21/17 13:44 01/21/17 13:44 01/21/17 13:44 - Laboratory Result Diagrams: 01/21/17 13:12 01/21/17 13:12 Laboratory results interpreted by me: 01/21/17 01/21/17 01/21/17 13:12 13:12 18:20 WBC 13.5 H Seg Neutrophils % 84.1 H Lymphocytes % 7.9 L Absolute Neutrophils 11.3 H VBG pCO2 33.1 L VBG HCO3 16.8 L Sodium 131.8 L Chloride 95 L Carbon Dioxide 15 L Anion Gap 22 H Glucose 357 H Direct Bilirubin 0.5 H AST 13 L Alkaline Phosphatase 130 H Urine Glucose (UA) Urine Ketones 01/21/17 18:20 WBC Seg Neutrophils % Lymphocytes % Absolute Neutrophils VBG pCO2 VBG HCO3 Sodium Chloride Carbon Dioxide Anion Gap Glucose Direct Bilirubin AST Alkaline Phosphatase Urine Glucose (UA) 500 H Urine Ketones 300 H - Diagnostic Test Radiology reviewed: Image reviewed, Reports reviewed - Images showed what appears to be consistent with a perianal abscess measuring approximately 1.7 x 10 cm. - Consults Dr. Desai Time consulted: 19:25 Consulted provider: will come to ER Discharge - Discharge Clinical Impression: Anorectal abscess Condition: Fair Disposition: ADMITTED INPATIENT Admitting Provider: Dr. Desai Unit Admitted: Surgical Floor
--- NOTE | 2017-01-21 20:33 | PDOC H&P ---
History of Present Illness Admission Date/PCP: 01/21/17 19:38 RITU MOSER PA-C Patient complains of: perineal pain and scrotal swelling. History of Present Illness: LIZ MUNGUIA is a 41 year old male presenting with scrotal swelling that began on Wednesday with associated pain. Patient noticed that the scrotum was red and the perineal region was firm and tender today and he subsequently came back to the emergency department. Patient feels like he has a fever but does not have documented fever. He did have some nausea. But no emesis in the last couple of days. He denies any abdominal pain. He denies any perianal pain he has had a normal bowel movement yesterday with no pain with defecation. Patient is diabetic but untreated. Past Medical History Cardiac Medical History: Reports: Hyperlipidema, Hypertension, Other - Ventricular hypertrophy. Endocrine Medical History: Reports: Diabetes Mellitus Type 2 - Untreated Musculoskeltal Medical History: Reports: Arthritis Past Surgical History Past Surgical History: Reports: Orthopedic Surgery - Left shoulder Social History Smoking Status: Former Smoker Frequency of Alcohol Use: Occasional Hx Recreational Drug Use: No Family History Family History: Reviewed & Not Pertinent Parental Family History Reviewed: No Children Family History Reviewed: No Sibling(s) Family History Reviewed.: No Medication/Allergy Home Medications: Ciprofloxacin HCl [Cipro 500 mg Tablet] 500 mg PO Q12 01/21/17 Hydrocodone/Acetaminophen [Somers 5-325 Tablet] 1 tab PO Q6HP PRN 01/21/17 Ondansetron [Ondansetron Odt] 1 tab SL Q4HP PRN 01/21/17 Allergies/Adverse Reactions: No Known Allergies Allergy (Unverified 01/02/13 17:58) Physical Exam Vital Signs: Temp Pulse Resp BP Pulse Ox 98.4 F 125 H 18 172/97 H 99 01/21/17 13:44 01/21/17 13:44 01/21/17 13:44 01/21/17 13:44 01/21/17 13:44 General appearance: PRESENT: no acute distress, cooperative Neck exam: PRESENT: other - Supple and nontender with no abnormal masses. Respiratory exam: PRESENT: clear to auscultation jeremy Cardiovascular exam: PRESENT: RRR GI/Abdominal exam: PRESENT: other - Soft, nondistended, nontender to palpation. No groin hernias. Gentrourinary exam: PRESENT: scrotal swelling - Bilateral scrotal swelling with diffuse erythema and edema but no blistering no discoloration no fluctuance. Testicles are palpable and nontender. At the perineal region there is an oblong area of marked erythema induration and fluctuance and marked tenderness. I do not see any erythema in the groin. No abnormalities in the upper thigh. There is no crepitus. There is no tenderness in the perianal region. There is no swelling nor erythema in the perianal region. Neurological exam: PRESENT: awake, oriented to person, oriented to place, oriented to situation Psychiatric exam: PRESENT: appropriate affect Results Impressions: Pelvis CT 01/21/17 17:18 IMPRESSION: FLUID COLLECTION IN THE RIGHT PERIANAL SOFT TISSUES SUSPICIOUS FOR ABSCESS. Assessment & Plan - Diagnosis (1) Perineal abscess Is this a current diagnosis for this admission?: YesPlan: Although the radiologist note a perianal abscess I believe it is a typo. Patient clearly has a perineal abscess not a perianal abscess. He has associated scrotal swelling and erythema but I do not think he has a scrotal abscess. He has no gas in the scrotum and on ct it just looks edematous. I do not think he has necrotizing fasciitis. I will plan to taken to the operating room for incision and drainage of his perineal abscess. We will keep him on broad-spectrum antibiotics and observe closely his scrotal swelling. I discussed with the patient the risk and benefits of the procedure including risk of prolonged wound healing and possibility of further surgical requirements. As well as injury to adjacent structures. And bleeding. Patient understands and agrees to proceed. Check preoperative EKG. Will ask hospitalist to help manage this patient postoperatively since he has untreated diabetes and hypertension.
[2017-01-21] MEDS ORDERED: BUPIVACAINE HCL 0.25 % INJ/PF (2.5 MG/1 ML) 30 ML VIAL ONE (20:57)
[2017-01-21] MEDS ORDERED: PROPOFOL INJ 200 MG/20 ML VIAL IV ONE (21:11)
[2017-01-21] MEDS ORDERED: MIDAZOLAM 2 MG/2 ML INJ ONE (21:11)
[2017-01-21] MEDS ORDERED: BUPIVACAINE HCL 0.25 % INJ/PF (2.5 MG/1 ML) 30 ML VIAL MC ONE (22:38)
[2017-01-21] MEDS ORDERED: BUPIVACAINE HCL 0.25 % INJ/PF (2.5 MG/1 ML) 30 ML VIAL INJ ONE (22:38)
[2017-01-21] MEDS ORDERED: DIPHENHYDRAMINE HCL 50 MG/ML VIAL IV PRN (22:48)
[2017-01-21] MEDS ORDERED: MEPERIDINE HCL/PF INJ 25 MG/1 ML DISP.SYRIN IV PRN (22:48)
[2017-01-21] MEDS ORDERED: MORPHINE SULFATE 10 MG/ML INJ IV PRN (22:48)
[2017-01-21] MEDS ORDERED: OXYCODONE-ACETAMINOPHEN 5-325 MG TABLET PO PRN ×2 (22:48)
[2017-01-21] MEDS ORDERED: PROMETHAZINE HCL INJ 25 MG/1 ML VIAL IV PRN (22:48)
[2017-01-21] MEDS ORDERED: FENTANYL CITRATE INJ/PF 100 MCG/2 ML AMPUL IV PRN ×3 (22:48)
[2017-01-21] MEDS ORDERED: ONDANSETRON HCL INJ/PF 4 MG/2 ML SDV IV PRN (23:35)
[2017-01-21] MEDS ORDERED: DEXTROSE 40% GEL 15 GM TUBE PO PRN ×4 (23:35)
[2017-01-21] MEDS ORDERED: DEXTROSE 50%-WATER 25 GM/50 ML DISP.SYRIN IV PRN ×4 (23:35)
[2017-01-21] MEDS ORDERED: GLUCAGON,HUMAN RECOMB 1 MG INJ SUBCUT PRN (23:35)
[2017-01-21] MEDS ORDERED: GLUCAGON,HUMAN RECOMB 1 MG INJ IM PRN (23:35)
[2017-01-21] MEDS ORDERED: INSULIN REG, HUMAN 100 UNIT/ML 3 ML VIAL (PYX) SUBCUT ONE (23:40)
[2017-01-21] MEDS ORDERED: INSULIN REG, HUMAN 100 UNIT/ML 3 ML VIAL (PYX) ONE (23:52)
[2017-01-22] MEDS ORDERED: FENTANYL CITRATE INJ/PF 100 MCG/2 ML AMPUL ONE (01:02)
--- NOTE | 2017-01-22 01:18 | Operative Report ---
Operative Report DATE OF SURGERY: 01/21/17 PREOPERATIVE DIAGNOSIS: Perineal abscess POSTOPERATIVE DIAGNOSIS: perineal phlegmon OPERATION: Perineal debridement SURGEON: PAYTON SERNA ANESTHESIA: Spinal TISSUE REMOVED OR ALTERED: Necrotic tissue submitted for Gram stain and culture COMPLICATIONS: None ESTIMATED BLOOD LOSS: 20 cc INTRAOPERATIVE FINDINGS: No discrete abscess pocket in the patient's perineum. Perineal tissue with pus laden soft tissue with evidence of necrosis. PROCEDURE: Informed consent was obtained. Patient was brought to the operating room. Spinal anesthesia was produced. And patient was placed in a lithotomy position and his perineum was prepped and draped in the usual sterile fashion. Overlying the region of maximal fluctuance at the right perineum, an 18-gauge needle was placed with the drainage of scant amount of seropurulent fluid. Multiple aspirations were performed and no discrete abscess pocket was found. Ultrasound of this region demonstrated phlegmon appearance to this area with no discrete pus pocket. Incision was made at the right perineum where I encountered pus laden soft tissue with evidence of tissue necrosis. Melendrez catheter was placed to protect the urethra during the dissection. No discrete pus pocket was identified. Patient's inner thigh is had normal overlying skin with no palpable nor visible abnormalities. The subcutaneous process appeared to extend to the base of the scrotum. Some of the pus laden necrotic tissue was sharply debrided. Specimen submitted to pathology for Gram stain and culture. Since we did not have permanant urology on staff, I made initial arrangements for transfer; however, later I was informed that we had [facility] urology coverage tonight therefore consultation was obtained from urology who did further bedside debridement in the recovery room since pt was still under effects of spinal anesthesia. Urology felt that the process did not extend into the scrotum and that the pt could be managed at our hospital.
[2017-01-22] MEDS ORDERED: ERTAPENEM SODIUM INJ 1 GM VIAL IV SCH (02:00)
[2017-01-22] MEDS ORDERED: ERTAPENEM SODIUM INJ 1 GM VIAL ONE (03:26)
[2017-01-22] MEDS: NORMAL SALINE 1000 ML 1,000 ML IV PRN ×2 (03:50→12:32)
[2017-01-22] MEDS ORDERED: VANCOMYCIN HCL 1,500 MG in DEXTROSE 5%-WATER 250 ML IV ONE (04:00)
[2017-01-22] MEDS ORDERED: VANCOMYCIN HCL INJ 1000 MG VIAL IV PRN (04:00)
[2017-01-22 05:01] LABS: MEAN CORPUSCULAR VOLUME 82 fl (80-97)
[2017-01-22 05:09] LABS: ABSOLUTE EOSINOPHILS # (AUTO) 0.1 10^3/uL (0.0-0.6); ABSOLUTE LYMPHOCYTES (AUTO) 0.9 10^3/uL (0.5-4.7); ABSOLUTE MONOCYTES (AUTO) 0.9 10^3/uL (0.1-1.4); ABSOLUTE NEUT (AUTO) 8.6 10^3/uL (1.7-8.2); BASOPHILS % (AUTO) 0.3 % (0-2); EOSINOPHILS % (AUTO) 0.8 % (0-6); HEMATOCRIT 39.4 % (37.9-51.0); HGB HCT DIFFERENCE 2.3; LYMPHOCYTES % (AUTO) 8.7 % (13-45); MEAN CORPUSCULAR HEMOGLOBIN 28.9 pg (27.0-33.4); MEAN CORPUSCULAR HGB CONC 35.4 g/dL (32.0-36.0); MONOCYTES % (AUTO) 8.8 % (3-13); RED BLOOD COUNT 4.82 10^6/uL (4.35-5.55); RED CELL DISTRIBUTION WIDTH 12.6 % (11.5-14.0); SEGMENTED NEUTROPHILS % (AUTO) 81.4 % (42-78); WHITE BLOOD COUNT 10.5 10^3/uL (4.0-10.5)
[2017-01-22 05:10] LABS: HEMOGLOBIN 13.9 g/dL (13.5-17.0)
[2017-01-22] MEDS ORDERED: VANCOMYCIN HCL INJ 1000 MG VIAL ONE (05:18)
[2017-01-22 05:23] LABS: ANION GAP 19 (5-19); BLOOD UREA NITROGEN 9 mg/dL (7-20); CALCIUM 8.6 mg/dL (8.4-10.2); CARBON DIOXIDE 13 mmol/L (22-30); CHLORIDE 104 mmol/L (98-107); CREATININE RESULT 0.53 mg/dL (0.52-1.25); GLUCOSE 280 mg/dL (75-110); POTASSIUM 3.8 mmol/L (3.6-5.0); SODIUM 136.4 mmol/L (137-145)
[2017-01-22] MEDS: MORPHINE SULFATE 10 MG/ML INJ IV PRN ×3 (05:33→21:23)
[2017-01-22] MEDS ORDERED: HYDRALAZINE HCL INJ/PF 20 MG/1 ML SDV IV PRN (07:24)
--- NOTE | 2017-01-22 08:38 | PROGRESS NOTE E ---
Progress Note NAME: LIZ MUNGUIA : 1975 AGE: 41Y DATE: 01/22/2017 ROOM: 317 SUBJECTIVE: Patient is afebrile and has less pains. The wound was checked with Dr. Desai and there is no obvious collection. The inflammation is not any worse. The wound was checked and there appears to be no pus on squeezing the sides. Also, does not show any abscess *------* scrotal areas, but the scrotum appears to be still swollen and somewhat inflamed. His white count this morning also is normal at 10.5 from 13.5 yesterday and he is afebrile. PLAN: Continue with the IV antibiotics and make sure his blood sugar is well controlled. We have consulted hospitalist primarily for blood sugar management. Also, the urologist will likely re-evaluate him today. DICTATING PHYSICIAN: KWAME ZEPEDA M.D. [id number] PHY#: [id number] ID: [id number] JOB#: [id number] ACCT: [id number] cc: >
[2017-01-22] MEDS ORDERED: OXYCODONE-ACETAMINOPHEN 5-325 MG TABLET PO PRN (08:58)
[2017-01-22] MEDS ORDERED: LISINOPRIL 10 MG TABLET PO ONE (09:08)
--- NOTE | 2017-01-22 09:19 | CONSULTATION REPORT E ---
Consultation Report NAME: LIZ MUNGUIA : 1975 AGE: 41Y DATE: 01/21/2017 317 A TO: DAPHNIE TAVERAS M.D. FROM: Karma RHODES, Requesting Physician IMPRESSION: Perineal abscess. RECOMMENDATIONS: 1. Debridement and packing with whirlpool. 2. Scrotal elevation. 3. Broad-spectrum antibiotics. CONSULTATION: Dr. Desai asked me to see the patient in the recovery room. He had been evaluated through the emergency room and had a pelvic CAT scan that suggested an abscess in his perineum. He had a history of 5 days of scrotal pain and swelling. He was started on Cipro, but the pain and swelling have persisted. He had some nausea and vomiting. He has poorly controlled diabetes. His blood sugars have been in the 350 range, he says over the past few days. He was taken to the operating room and had a vertical perineal incision made. Some tissue was dbrided at that time. Dr. Desai was concerned that the necrosis may extend into the scrotum, so he asked me to evaluate him. SOCIAL HISTORY: As noted in the ER note dated 01/21/[address] Claudio, which I have reviewed and will not recount at this time. FAMILY HISTORY: As noted in the ER note dated 01/21/[address] Claudio, which I have reviewed and will not recount at this time. REVIEW OF SYSTEMS: As noted in the ER note dated 01/21/[address] Claudio, which I have reviewed and will not recount at this time. PAST MEDICAL HISTORY: As noted in the ER note dated 01/21/[address] Claudio, which I have reviewed and will not recount at this time. LABORATORY DATA: His white count was 13,500 with a shift. His urinalysis was unremarkable. He had a Melendrez catheter placed. PLAN: I examined the patient in the recovery room. He had spinal anesthesia on board. I examined the wound with Dr. Desai and I dbrided additional necrotic tissue back to bleeding tissue. There was no evidence of extension into the scrotum per se. There was some secondary swelling and edema. The testicles did not appear to be involved. There was no fluctuance on either side of the incised area or in the scrotum. I will see the patient later on today during rounds and we will then see him daily while in the hospital. DICTATING PHYSICIAN: DAPHNIE TAVERAS M.D. [id number] PHY#: [id number] ID: [id number] JOB#: [id number] ACCT: [id number] cc:Frandy DOE M.D. > MTDD
[2017-01-22] MEDS ORDERED: NORMAL SALINE 100 ML with INSULIN REGULAR, HUMAN 100 UNIT IV PRN ×2 (09:29)
[2017-01-22] MEDS ORDERED: NORMAL SALINE 1000 ML 2,000 ML IV ONE (09:31)
[2017-01-22] MEDS: OXYCODONE-ACETAMINOPHEN 5-325 MG TABLET PO PRN ×3 (09:44→18:48)
[2017-01-22] MEDS: ENOXAPARIN SODIUM INJ 40 MG/0.4 ML DISP.SYRIN SUBCUT SCH (09:46)
[2017-01-22 10:02] LABS: VENOUS BLOOD BASE EXCESS -7.8 mmol/L; VENOUS BLOOD HCO3 18.4 mmol/L (20-32); VENOUS BLOOD PCO2 39.8 mmHg (35-63); VENOUS BLOOD PH 7.28 (7.30-7.42)
[2017-01-22 10:31] LABS: ANION GAP 16 (5-19); BLOOD UREA NITROGEN 8 mg/dL (7-20); CALCIUM 9.1 mg/dL (8.4-10.2); CARBON DIOXIDE 14 mmol/L (22-30); CHLORIDE 106 mmol/L (98-107); GLUCOSE 275 mg/dL (75-110); POTASSIUM 4.1 mmol/L (3.6-5.0); SODIUM 136.1 mmol/L (137-145)
[2017-01-22] MEDS ORDERED: SODIUM BICARBONATE 8.4% INJ 50 MEQ/50 ML DISP.SYRIN IV ONE (10:59)
--- NOTE | 2017-01-22 11:05 | EKG REPORT ---
SEVERITY:- OTHERWISE NORMAL ECG - SINUS TACHYCARDIA : Confirmed by: Sidra Escobar MD 22-Jan-2017 11:04:12
[2017-01-22] MEDS: INSULIN REG, HUMAN 100 UNIT/ML 3 ML VIAL (PYX) SUBCUT PRN ×2 (12:33→23:44)
--- NOTE | 2017-01-22 14:18 | PDOC CONSULTATION ---
Consultation Consult Date: 01/22/17 Attending physician:: PAYTON SERNA Consult reason:: Diabetes and Hypertension History of Present Illness Admission Date/PCP: 01/21/17 23:35 RITU MOSER PA-C History of Present Illness: LIZ MUNGUIA is a 41 year old male presenting with scrotal swelling that began on Wednesday with associated pain. Patient noticed that the scrotum was red and the perineal region was firm and tender today and he subsequently came back to the emergency department. Patient feels like he has a fever but does not have documented fever. He did have some nausea. But no emesis in the last couple of days. He denies any abdominal pain. He denies any perianal pain he has had a normal bowel movement yesterday with no pain with defecation. Patient is diabetic but untreated. Patient went to the OR last night for debridement. This morning, patient is doing well and we are consulted for diabetes and hypertension. Patient reports that he previously was on metformin and lisinopril but quit taking these approximately 3 years ago. Patient reports a significant weight loss over the past several years of over 300 pounds due to diet and exercise. Past Medical History Cardiac Medical History: Reports: Hyperlipidema, Hypertension, Other - Ventricular hypertrophy. Endocrine Medical History: Reports: Diabetes Mellitus Type 2 - Untreated Musculoskeltal Medical History: Reports: Arthritis Psychiatric Medical History: Denies: Depression Past Surgical History Past Surgical History: Reports: Orthopedic Surgery - Left shoulder Social History Smoking Status: Former Smoker Number of Years Smokin Frequency of Alcohol Use: Occasional Hx Recreational Drug Use: No Drugs: None Hx Prescription Drug Abuse: No - Advance Directive Resuscitation Status: Full Code Surrogate healthcare decision maker:: , Gwen Family History Family History: CAD, Hypertension, Malignancy Parental Family History Reviewed: Yes Children Family History Reviewed: Yes Sibling(s) Family History Reviewed.: Yes Medication/Allergy Home Medications: Ciprofloxacin HCl [Cipro 500 mg Tablet] 500 mg PO Q12 01/21/17 Hydrocodone/Acetaminophen [[place] 5-325 Tablet] 1 tab PO Q6HP PRN 01/21/17 Ondansetron [Ondansetron Odt] 1 tab SL Q4HP PRN 01/21/17 Allergies/Adverse Reactions: No Known Allergies Allergy (Unverified 01/02/13 17:58) Review of Systems Constitutional: PRESENT: chills, fatigue, fever(s), weight loss. ABSENT: headache(s), weight gain Eyes: ABSENT: visual disturbances - Wears glasses Ears: ABSENT: hearing changes Nose, Mouth, and Throat: PRESENT: headache(s) Cardiovascular: ABSENT: chest pain, dyspnea on exertion, edema, orthropnea, palpitations Respiratory: ABSENT: cough, dyspnea, hemoptysis, sputum Gastrointestinal: ABSENT: abdominal pain, constipation, diarrhea, dysphagia, heartburn, hematemesis, hematochezia, nausea, vomiting Genitourinary: PRESENT: as per HPI Musculoskeletal: ABSENT: joint swelling Integumentary: PRESENT: as per HPI Neurological: ABSENT: abnormal gait, abnormal speech, confusion, dizziness, focal weakness, syncope Psychiatric: ABSENT: anxiety, depression, homidical ideation, suicidal ideation Endocrine: ABSENT: cold intolerance, heat intolerance, polydipsia, polyuria Hematologic/Lymphatic: ABSENT: easy bleeding, easy bruising Physical Exam Vital Signs: Temp Pulse Resp BP Pulse Ox 98.1 F 109 H 20 170/97 H 96 01/22/17 03:36 01/22/17 03:36 01/22/17 03:36 01/22/17 03:36 01/22/17 03:36 Intake & Output 01/21/17 01/22/17 01/23/17 06:59 06:59 06:59 Intake Total 1025 Output Total 1150 Balance -125 Weight 117.8 kg General appearance: PRESENT: mild distress, obese, well-developed, well- nourished Head exam: PRESENT: atraumatic, normocephalic Eye exam: PRESENT: conjunctiva pink, EOMI, PERRLA. ABSENT: conjunctival injection, scleral icterus Ear exam: PRESENT: normal external ear exam Mouth exam: PRESENT: dry mucosa, tongue midline Neck exam: ABSENT: JVD, lymphadenopathy, thyromegaly, tracheal deviation Respiratory exam: PRESENT: clear to auscultation jeremy. ABSENT: rales, rhonchi, wheezes Cardiovascular exam: PRESENT: RRR, +S1, +S2. ABSENT: diastolic murmur, rubs, systolic murmur, tachycardia Pulses: PRESENT: normal dorsalis pedis pul Vascular exam: PRESENT: normal capillary refill GI/Abdominal exam: PRESENT: hypoactive bowel sounds, soft. ABSENT: distended, guarding, mass, Birch's sign, organolmegaly, rebound, rigid, tenderness Rectal exam: PRESENT: deferred Extremities exam: PRESENT: full ROM. ABSENT: calf tenderness, clubbing, pedal edema Neurological exam: PRESENT: alert, awake, oriented to person, oriented to place , oriented to time, oriented to situation, CN II-XII grossly intact. ABSENT: motor sensory deficit Psychiatric exam: PRESENT: appropriate affect, normal mood. ABSENT: homicidal ideation, suicidal ideation Skin exam: PRESENT: dry, intact, warm. ABSENT: cyanosis, rash Results Laboratory Results: 01/22/17 04:14 01/22/17 04:14 01/22/17 01/22/17 04:14 04:14 WBC 10.5 RBC 4.82 Hgb 13.9 Hct 39.4 MCV 82 MCH 28.9 MCHC 35.4 RDW 12.6 Plt Count 220 Seg Neutrophils % 81.4 H Lymphocytes % 8.7 L Monocytes % 8.8 Eosinophils % 0.8 Basophils % 0.3 Absolute Neutrophils 8.6 H Absolute Lymphocytes 0.9 Absolute Monocytes 0.9 Absolute Eosinophils 0.1 Absolute Basophils 0.0 Sodium 136.4 L Potassium 3.8 Chloride 104 Carbon Dioxide 13 L Anion Gap 19 BUN 9 Creatinine 0.53 Est GFR ( Amer) > 60 Est GFR (Non-Af Amer) > 60 Glucose 280 H Calcium 8.6 Impressions: Pelvis CT 01/21/17 17:18 IMPRESSION: FLUID COLLECTION IN THE RIGHT PERIANAL SOFT TISSUES SUSPICIOUS FOR ABSCESS. Assessment & Plan - Diagnosis (1) Perineal abscess Is this a current diagnosis for this admission?: YesPlan: tHis postoperative day #1 for I&D. Currently on vancomycin and ertapenem. At this time, I defer all issues of antibiotic management, pain management, and appropriate treatment of this condition including discharge planning to the primary team. (2) Diabetes type 2, uncontrolled Qualifiers: Diabetes mellitus complication status: with unspecified complications Diabetes mellitus senior care insulin use: without senior care use Qualified Code(s): E11.8 - Type 2 diabetes mellitus with unspecified complications; E11.65 - Type 2 diabetes mellitus with hyperglycemia Is this a current diagnosis for this admission?: YesPlan: Hemoglobin A1c is 11.8. Place patient on sliding scale insulin and start patient on Lantus 20units sq qhs. ADA diet Diabetic nurse educator (3) HTN (hypertension) Qualifiers: Hypertension type: essential hypertension Qualified Code(s): I10 - Essential (primary) hypertension Is this a current diagnosis for this admission?: YesPlan: Patient on lisinopril 20 mg p.o. twice daily. (4) HLD (hyperlipidemia) Qualifiers: Hyperlipidemia type: unspecified Qualified Code(s): E78.5 - Hyperlipidemia, unspecified Is this a current diagnosis for this admission?: YesPlan: Reported history of hyperlipidemia. Patient may have this checked as an outpatient. (5) Severe obesity (BMI 35.0-39.9) with comorbidity Is this a current diagnosis for this admission?: YesPlan: Advised to continue his past diet and exercise habits. - Time Time Spent: 50 to 70 Minutes Medications reviewed and adjusted accordingly: Yes
[2017-01-22] MEDS: VANCOMYCIN HCL 2,000 MG in DEXTROSE 5%-WATER 500 ML IV SCH ×2 (14:27→21:23)
[2017-01-22 15:34] LABS: ANION GAP 18 (5-19); BLOOD UREA NITROGEN 7 mg/dL (7-20); CALCIUM 8.5 mg/dL (8.4-10.2); CARBON DIOXIDE 14 mmol/L (22-30); CHLORIDE 103 mmol/L (98-107); CREATININE RESULT 0.47 mg/dL (0.52-1.25); GLUCOSE 332 mg/dL (75-110); POTASSIUM 3.8 mmol/L (3.6-5.0); SODIUM 135.1 mmol/L (137-145)
--- NOTE | 2017-01-22 15:54 | PROGRESS NOTE E ---
Progress Note NAME: LIZ MUNGUIA : 1975 AGE: 41Y DATE: 01/22/2017 ROOM: 317 SUBJECTIVE: I saw the patient approximately 12 hours ago. At that time, I debrided some necrotic tissue from his perineal wound. His wound has been checked twice today, once by the nurse, and once by Mani Heath. The wound was reportedly pink, bleeding, without evidence of any necrotic tissue or purulence. His white count is now normal. His scrotum is still swollen but is less swollen than earlier today. He still has a Melendrez catheter indwelling. He is receiving fluid challenges so for the time being I have instructed the nurse to leave the Melendrez indwelling. I will check the wound tomorrow. At this point, nothing further is recommended from my standpoint. DICTATING PHYSICIAN: DAPHNIE TAVERAS M.D. [id number] PHY#: [id number] ID: [id number] JOB#: [id number] ACCT: [id number] cc: >
[2017-01-22] MEDS ORDERED: POTASSIUM CHLORIDE 10 MEQ TABLET.SA PO ONE (17:45)
[2017-01-22] MEDS ORDERED: INSULIN REG, HUMAN 100 UNIT/ML 3 ML VIAL (PYX) IV ONE (17:45)
[2017-01-22] MEDS ORDERED: NORMAL SALINE 1000 ML 1,000 ML IV ONE ×2 (17:45→19:30)
[2017-01-22 20:32] LABS: ANION GAP 17 (5-19); BLOOD UREA NITROGEN 8 mg/dL (7-20); CALCIUM 8.5 mg/dL (8.4-10.2); CARBON DIOXIDE 15 mmol/L (22-30); CHLORIDE 104 mmol/L (98-107); GLUCOSE 284 mg/dL (75-110); POTASSIUM 3.9 mmol/L (3.6-5.0); SODIUM 135.5 mmol/L (137-145)
[2017-01-22] MEDS ORDERED: INSULIN GLARGINE,HUM.REC.ANLOG 1,000 UNIT/10 ML UNIT SUBCUT SCH (22:00)
[2017-01-22] MEDS ORDERED: INSULIN GLARGINE,HUM.REC.ANLOG 300 UNIT/3 ML INSULN.PEN SUBCUT SCH (22:00)
[2017-01-22] MEDS: LISINOPRIL 10 MG TABLET PO SCH (23:30)
[2017-01-22] MEDS: INSULIN GLARGINE,HUM.REC.ANLOG 300 UNIT/3 ML INSULN.PEN SUBCUT SCH (23:46)
[2017-01-23] MEDS: NORMAL SALINE 1000 ML 1,000 ML IV PRN (02:23)
[2017-01-23] MEDS: VANCOMYCIN HCL 2,000 MG in DEXTROSE 5%-WATER 500 ML IV SCH ×2 (05:39→14:32)
[2017-01-23 05:46] LABS: ABSOLUTE EOSINOPHILS # (AUTO) 0.1 10^3/uL (0.0-0.6); ABSOLUTE LYMPHOCYTES (AUTO) 1.1 10^3/uL (0.5-4.7); ABSOLUTE MONOCYTES (AUTO) 0.7 10^3/uL (0.1-1.4); ABSOLUTE NEUT (AUTO) 4.9 10^3/uL (1.7-8.2); BASOPHILS % (AUTO) 0.6 % (0-2); HEMATOCRIT 38.8 % (37.9-51.0); HEMOGLOBIN 13.5 g/dL (13.5-17.0); HGB HCT DIFFERENCE 1.7; LYMPHOCYTES % (AUTO) 15.7 % (13-45); MEAN CORPUSCULAR HEMOGLOBIN 28.7 pg (27.0-33.4); MEAN CORPUSCULAR HGB CONC 34.9 g/dL (32.0-36.0); MEAN CORPUSCULAR VOLUME 82 fl (80-97); MONOCYTES % (AUTO) 10.7 % (3-13); RED BLOOD COUNT 4.72 10^6/uL (4.35-5.55); RED CELL DISTRIBUTION WIDTH 12.8 % (11.5-14.0); WHITE BLOOD COUNT 6.9 10^3/uL (4.0-10.5)
[2017-01-23 05:50] LABS: APPEARANCE,URINE CLEAR; BILIRUBIN,URINE NEGATIVE (NEGATIVE); GLUCOSE, URINE >=500 mg/dL (NEGATIVE); KETONES,URINE 80 mg/dL (NEGATIVE); LEUKOCYTE ESTERASE,URINE NEGATIVE (NEGATIVE); NITRITE,URINE NEGATIVE (NEGATIVE); PROTEIN,URINE NEGATIVE (NEGATIVE); URINE SPECIFIC GRAVITY 1.014; UROBILINOGEN,URINE NEGATIVE mg/dL (<2.0)
[2017-01-23 05:58] LABS: ANION GAP 12 (5-19); BLOOD UREA NITROGEN 7 mg/dL (7-20); CALCIUM 8.5 mg/dL (8.4-10.2); CARBON DIOXIDE 20 mmol/L (22-30); CHLORIDE 105 mmol/L (98-107); CREATININE RESULT 0.57 mg/dL (0.52-1.25); GLUCOSE 254 mg/dL (75-110); POTASSIUM 3.7 mmol/L (3.6-5.0); SODIUM 137.4 mmol/L (137-145)
[2017-01-23] MEDS: MORPHINE SULFATE 10 MG/ML INJ IV PRN ×2 (06:35→21:52)
[2017-01-23] MEDS ORDERED: NORMAL SALINE 1000 ML 1,000 ML IV PRN (07:06)
[2017-01-23] MEDS: OXYCODONE-ACETAMINOPHEN 5-325 MG TABLET PO PRN ×3 (07:10→22:59)
[2017-01-23] MEDS ORDERED: MIDAZOLAM 2 MG/2 ML INJ ONE (08:18)
[2017-01-23] MEDS ORDERED: KETAMINE HCL INJ 500 MG/10 ML VIAL ONE (08:18)
[2017-01-23] MEDS ORDERED: PROPOFOL INJ 200 MG/20 ML VIAL IV ONE (08:18)
[2017-01-23] MEDS ORDERED: ACETAMINOPHEN 0 ML IV ONE (08:18)
[2017-01-23] MEDS ORDERED: FENTANYL CITRATE INJ/PF 100 MCG/2 ML AMPUL ONE (08:18)
[2017-01-23] MEDS ORDERED: EPHEDRINE SULFATE INJ 50 MG/1 ML AMPULE ONE (08:19)
[2017-01-23] MEDS ORDERED: ONDANSETRON HCL INJ/PF 4 MG/2 ML SDV IV PRN (08:40)
[2017-01-23] MEDS ORDERED: DIPHENHYDRAMINE HCL 50 MG/ML VIAL IV PRN (08:40)
[2017-01-23] MEDS ORDERED: PROMETHAZINE HCL INJ 25 MG/1 ML VIAL IV PRN ×2 (08:40)
[2017-01-23] MEDS ORDERED: FENTANYL CITRATE INJ/PF 100 MCG/2 ML AMPUL IV PRN ×2 (08:40)
[2017-01-23] MEDS ORDERED: LISINOPRIL 10 MG TABLET PO SCH (10:00)
[2017-01-23] MEDS ORDERED: COLLAGENASE CLOSTRIDIUM HIST. OINT 30 GM TOP SCH (10:00)
--- NOTE | 2017-01-23 10:08 | OPERATIVE REPORT E ---
Operative Report NAME: LIZ MUNGUIA : 1975 AGE: 41Y DATE OF SURGERY: 01/23/2017 ROOM: 317 PREOPERATIVE DIAGNOSIS: Necrotizing fascitis. POSTOPERATIVE DIAGNOSIS: Necrotizing fascitis. OPERATIVE PROCEDURE: Extensive debridement of perineal wound. The amount of tissue taken was 12 cm x 10 cm. He will need continued debridement at the bedside p.r.n. and may need to return to the OR for further debridement. SURGEON: DAPHNIE TAVERAS M.D. CERTIFIED MEDICAL TRANSCRIPTIONIST: None. SPECIMENS: None. BLEEDING: Mild (approximately 50 mL). COMPLICATIONS: None. ANESTHESIA: MAC. INDICATIONS: The patient is a 41-year-old gentleman who I saw in consultation on 01/22/2017. Dr. Desai had opened a perineal abscess. I debrided some necrotic tissue at the bedside and the recovery room while he was still under spinal anesthesia. I was told that his wound yesterday looked pink and healthy. When I made rounds today particularly in the superior part of the wound, there was edema and necrotic tissue. I could not debride it sufficiently well at the bedside and therefore I am bringing him to the OR. OPERATION: After the patient was identified in the preop holding area, he was brought to the operating room. A timeout was performed for the correct patient and procedure was confirmed. Following this he was given sedation. He was then positioned in a dorsal lithotomy position and he was prepped in the routine sterile manner. Necrotic tissue at the base was removed but it was not necessary to remove any additional skin in the lower half of the perineal wound. Going superiorly though, I had to take out an area approximately 12 cm cephalad and 5 cm laterally on each side to get back to bleeding tissue. There was no crepitance per se. The necrosis did not penetrate into the scrotum although it did efface against the subcutaneous fat of the scrotum inferiorly. Going deep I had to resect necrotic tissue until I reached bleeding tissue and fat. There was no loculated collection of pus. I did not find any evidence of a fistula. Most likely this was residual necrotic tissue superiorly was remaining from the initial debridement on January 21. Once I reached bleeding tissue on all sites and at the base and superior and inferior part of the incision, I irrigated it and used a scrub brush to roughen any fibrinous coating. There is good bleeding from all surfaces. This was irrigated with saline and it was packed with damp Raytex gauze and then a dry gauze at the surface. At the end of the procedure I performed a rectal exam and there was no evidence of any communication with the perineal abscess. All needle, sponge, and instrument counts were correct. The patient was returned to recovery room in satisfactory condition. PLAN: If possible I will performed debridements at the bedside. If necessary he will be brought back to OR for further debridement. DICTATING PHYSICIAN: DAPHNIE TAVERAS M.D. [id number] PHY#: [id number] ID: [id number] JOB#: [id number] ACCT: [id number] cc:KWAME ZEPEDA M.D., MARK M.D. > MTDD
[2017-01-23] MEDS ORDERED: LIDOCAINE 2% INJ-PF (20 MG/ML) 10 ML AMPUL ONE (10:29)
[2017-01-23] MEDS ORDERED: ONDANSETRON HCL INJ/PF 4 MG/2 ML SDV ONE (10:29)
[2017-01-23] MEDS ORDERED: METOCLOPRAMIDE HCL INJ/PF 10 MG/2 ML SDV ONE (10:29)
[2017-01-23] MEDS: ENOXAPARIN SODIUM INJ 40 MG/0.4 ML DISP.SYRIN SUBCUT SCH (10:54)
[2017-01-23] MEDS: ERTAPENEM SODIUM 1 GM in NORMAL SALINE 50 ML IV SCH (12:09)
[2017-01-23] MEDS: INSULIN REG, HUMAN 100 UNIT/ML 3 ML VIAL (PYX) SUBCUT PRN ×3 (12:09→23:16)
[2017-01-23] MEDS: LISINOPRIL 10 MG TABLET PO SCH ×2 (12:10→23:09)
[2017-01-23] MEDS ORDERED: POTASSIUM CHLORIDE 10 MEQ TABLET.SA PO ONE ×2 (14:33→15:15)
--- NOTE | 2017-01-23 14:52 | PDOC PROGRESS REPORT ---
Subjective Progress Note for:: 01/23/17 Subjective:: Patient seen with family at bedside and Una Moraes RN. Patient required a return trip to the OR for debridement this morning. He denies shortness of breath, chest pain, nausea, vomiting, fever, chills, new onset weakness. Physical Exam Vital Signs: Temp Pulse Resp BP Pulse Ox 98.0 F 96 13 162/91 H 93 01/23/17 03:59 01/23/17 03:59 01/23/17 03:59 01/23/17 03:59 01/23/17 03:59 Intake & Output 01/22/17 01/23/17 01/24/17 06:59 06:59 06:59 Intake Total 1025 6375 Output Total 1150 6200 Balance -125 175 Weight 117.8 kg 116.2 kg Exam: GENERAL: obese, A+Ox3; ill appearing HEENT: Conjunctiva clear, nonicteric, moist mucous membranes, no JVD, midline trachea RESPIRATORY: CTAB CARDIAC: Regular rate and rhythm, no murmurs/gallops/rubs ABDOMEN: Soft, nondistended, nontender, positive bowel sounds, no rebound, no guarding EXTREMETIES: No cyanosis, clubbing; 1+edema NEUROLOGIC: Alert, oriented to person/place/time, CN's grossly intact, no focal deficits SKIN: No rash; scrotal area with bandage with sanguanous drainage PSYCH: flat affect Results Laboratory Results: 01/23/17 05:04 01/23/17 05:04 01/22/17 01/22/17 01/22/17 09:19 09:49 09:49 WBC RBC Hgb Hct MCV MCH MCHC RDW Plt Count Seg Neutrophils % Lymphocytes % Monocytes % Eosinophils % Basophils % Absolute Neutrophils Absolute Lymphocytes Absolute Monocytes Absolute Eosinophils Absolute Basophils VBG pH 7.28 L VBG pCO2 39.8 VBG HCO3 18.4 L VBG Base Excess -7.8 Sodium 136.1 L Potassium 4.1 Chloride 106 Carbon Dioxide 14 L Anion Gap 16 BUN 8 Creatinine 0.50 L Est GFR ( Amer) > 60 Est GFR (Non-Af Amer) > 60 Glucose 275 H Lactic Acid 0.8 Calcium 9.1 Urine Color Urine Appearance Urine pH Ur Specific Meredith Urine Protein Urine Glucose (UA) Urine Ketones Urine Blood Urine Nitrite Ur Leukocyte Esterase Urine WBC (Auto) Urine RBC (Auto) 01/22/17 01/22/17 01/23/17 14:55 19:46 05:04 WBC 6.9 RBC 4.72 Hgb 13.5 Hct 38.8 MCV 82 MCH 28.7 MCHC 34.9 RDW 12.8 Plt Count 253 Seg Neutrophils % 71.0 Lymphocytes % 15.7 Monocytes % 10.7 Eosinophils % 2.0 Basophils % 0.6 Absolute Neutrophils 4.9 Absolute Lymphocytes 1.1 Absolute Monocytes 0.7 Absolute Eosinophils 0.1 Absolute Basophils 0.0 VBG pH VBG pCO2 VBG HCO3 VBG Base Excess Sodium 135.1 L 135.5 L Potassium 3.8 3.9 Chloride 103 104 Carbon Dioxide 14 L 15 L Anion Gap 18 17 BUN 7 8 Creatinine 0.47 L 0.50 L Est GFR ( Amer) > 60 > 60 Est GFR (Non-Af Amer) > 60 > 60 Glucose 332 H 284 H Lactic Acid Calcium 8.5 8.5 Urine Color Urine Appearance Urine pH Ur Specific Meredith Urine Protein Urine Glucose (UA) Urine Ketones Urine Blood Urine Nitrite Ur Leukocyte Esterase Urine WBC (Auto) Urine RBC (Auto) 01/23/17 01/23/17 05:04 05:12 WBC RBC Hgb Hct MCV MCH MCHC RDW Plt Count Seg Neutrophils % Lymphocytes % Monocytes % Eosinophils % Basophils % Absolute Neutrophils Absolute Lymphocytes Absolute Monocytes Absolute Eosinophils Absolute Basophils VBG pH VBG pCO2 VBG HCO3 VBG Base Excess Sodium 137.4 Potassium 3.7 Chloride 105 Carbon Dioxide 20 L Anion Gap 12 BUN 7 Creatinine 0.57 Est GFR ( Amer) > 60 Est GFR (Non-Af Amer) > 60 Glucose 254 H Lactic Acid Calcium 8.5 Urine Color STRAW Urine Appearance CLEAR Urine pH 6.0 Ur Specific Meredith 1.014 Urine Protein NEGATIVE Urine Glucose (UA) >=500 H Urine Ketones 80 H Urine Blood SMALL H Urine Nitrite NEGATIVE Ur Leukocyte Esterase NEGATIVE Urine WBC (Auto) 0 Urine RBC (Auto) 1 Impressions: Pelvis CT 01/21/17 17:18 IMPRESSION: FLUID COLLECTION IN THE RIGHT PERIANAL SOFT TISSUES SUSPICIOUS FOR ABSCESS. Assessment & Plan - Diagnosis (1) Perineal abscess Is this a current diagnosis for this admission?: YesPlan: tHis postoperative day #2 for I&D and now with return this morning. Patient met criteria for sepsis on admission. Currently on vancomycin and ertapenem. His cultures have returned group B streptococcus and I have placed patient on Penicillin G for this. At this time, I defer all issues of pain management,antibiotic management, and appropriate treatment of this condition including discharge planning to the primary team. Have considered and am concerned for development of Anusha's gangrene. (2) Diabetes type 2, uncontrolled Qualifiers: Diabetes mellitus complication status: with unspecified complications Diabetes mellitus half-way insulin use: without terminal system operator use Qualified Code(s): E11.8 - Type 2 diabetes mellitus with unspecified complications; E11.65 - Type 2 diabetes mellitus with hyperglycemia; Z79.4 - shelter (current ) use of insulin Is this a current diagnosis for this admission?: YesPlan: Hemoglobin A1c is 11.8. Continue patient on SSI. Increase evening lantus and initiate metformin. ADA diet Diabetic nurse educator (3) HTN (hypertension) Qualifiers: Hypertension type: essential hypertension Qualified Code(s): I10 - Essential (primary) hypertension Is this a current diagnosis for this admission?: YesPlan: Feel that some of his current hypertension is secondary to his pain. Patient on lisinopril 20 mg p.o. twice daily. (4) HLD (hyperlipidemia) Qualifiers: Hyperlipidemia type: unspecified Qualified Code(s): E78.5 - Hyperlipidemia, unspecified Is this a current diagnosis for this admission?: Yes (5) Severe obesity (BMI 35.0-39.9) with comorbidity Is this a current diagnosis for this admission?: Yes - Time Time Spent with patient: 35 or more minutes Medications reviewed and adjusted accordingly: Yes
--- NOTE | 2017-01-23 16:38 | PROGRESS NOTE E ---
Progress Note NAME: LIZ MUNGUIA : 1975 AGE: 41Y DATE: 01/23/2017 ROOM: 317 SUBJECTIVE: Patient feels better today post debridement by Dr. Oglesby, the urologist. I read Dr. Oglesby's OR report and patient had more necrotic tissue removed. His white count remained normal at 6.9, but his blood sugar still remains elevated around 289. PLAN: The plan is to possibly take the patient back to the OR tomorrow for further debridement and I will make time to check the wound with Dr. Oglesby tomorrow. DICTATING PHYSICIAN: KWAME ZEPEDA M.D. [id number] PHY#: [id number] ID: [id number] JOB#: [id number] ACCT: [id number] cc: >
[2017-01-23] MEDS: WATER IV SCH ×2 (17:15→20:03)
[2017-01-23] MEDS: DEXTROSE 5% IV SCH ×2 (17:15→20:03)
[2017-01-23] MEDS: METFORMIN HCL 500 MG TABLET PO SCH (17:15)
[2017-01-23] MEDS: PENICILLIN POTASSIUM IV SCH ×2 (17:15→20:03)
[2017-01-23] MEDS ORDERED: DOCUSATE SODIUM 100 MG CAPSULE PO SCH (18:00)
[2017-01-23] MEDS: COLLAGENASE CLOSTRIDIUM HIST. OINT 30 GM TOP SCH (23:11)
[2017-01-23] MEDS: INSULIN GLARGINE,HUM.REC.ANLOG 300 UNIT/3 ML INSULN.PEN SUBCUT SCH (23:12)
[2017-01-24] MEDS: WATER IV SCH ×6 (00:20→20:34)
[2017-01-24] MEDS: DEXTROSE 5% IV SCH ×6 (00:20→20:34)
[2017-01-24] MEDS: PENICILLIN POTASSIUM IV SCH ×6 (00:20→20:34)
[2017-01-24 04:55] LABS: ABSOLUTE EOSINOPHILS # (AUTO) 0.1 10^3/uL (0.0-0.6); ABSOLUTE LYMPHOCYTES (AUTO) 1.4 10^3/uL (0.5-4.7); ABSOLUTE MONOCYTES (AUTO) 0.6 10^3/uL (0.1-1.4); ABSOLUTE NEUT (AUTO) 4.3 10^3/uL (1.7-8.2); BASOPHILS % (AUTO) 0.5 % (0-2); EOSINOPHILS % (AUTO) 2.1 % (0-6); HEMATOCRIT 40.4 % (37.9-51.0); HEMOGLOBIN 14.3 g/dL (13.5-17.0); HGB HCT DIFFERENCE 2.5; MEAN CORPUSCULAR HEMOGLOBIN 28.7 pg (27.0-33.4); MEAN CORPUSCULAR HGB CONC 35.4 g/dL (32.0-36.0); MEAN CORPUSCULAR VOLUME 81 fl (80-97); MONOCYTES % (AUTO) 9.3 % (3-13); RED BLOOD COUNT 4.98 10^6/uL (4.35-5.55); RED CELL DISTRIBUTION WIDTH 12.4 % (11.5-14.0); SEGMENTED NEUTROPHILS % (AUTO) 67.1 % (42-78); WHITE BLOOD COUNT 6.5 10^3/uL (4.0-10.5)
[2017-01-24 05:14] LABS: ANION GAP 11 (5-19); BLOOD UREA NITROGEN 7 mg/dL (7-20); CARBON DIOXIDE 27 mmol/L (22-30); CHLORIDE 101 mmol/L (98-107); CREATININE RESULT 0.52 mg/dL (0.52-1.25); GLUCOSE 227 mg/dL (75-110); POTASSIUM 3.8 mmol/L (3.6-5.0); SODIUM 138.5 mmol/L (137-145)
[2017-01-24] MEDS: MORPHINE SULFATE 10 MG/ML INJ IV PRN ×3 (05:14→21:27)
[2017-01-24] MEDS: LACTOBACILLUS ACIDOPHILUS 250 MG TAB PO SCH ×2 (09:29→17:13)
[2017-01-24] MEDS: LISINOPRIL 10 MG TABLET PO SCH ×2 (09:30→21:25)
[2017-01-24] MEDS: ENOXAPARIN SODIUM INJ 40 MG/0.4 ML DISP.SYRIN SUBCUT SCH (09:30)
[2017-01-24] MEDS: METFORMIN HCL 500 MG TABLET PO SCH ×2 (09:30→15:41)
[2017-01-24] MEDS: ERTAPENEM SODIUM 1 GM in NORMAL SALINE 50 ML IV SCH (09:31)
[2017-01-24] MEDS: COLLAGENASE CLOSTRIDIUM HIST. OINT 30 GM TOP SCH ×2 (09:31→21:30)
--- NOTE | 2017-01-24 10:54 | PROGRESS NOTE E ---
Progress Note NAME: LIZ MUNGUIA : 1975 AGE: 41Y DATE: 01/24/2017 ROOM: 317 SUBJECTIVE: The patient had extensive debridement of his perineal wound yesterday. He had 1 dressing change last night that the nurse reports went well. He was started on Santyl to be applied to the wound twice daily along with wet-to-dry dressings. His white count is normal. OBJECTIVE: VITAL SIGNS: Temp 98.3, pulse 96, blood pressure 158/92. WOUND: When I examined his wound today with Dr. Heath in attendance, there was no evidence of necrotic tissue. There was good bleeding pink tissue throughout. Santyl was applied to all of the exposed wound and then some damp Ray-Cassidy gauze was laid into the wound so that it effaced all of the raw tissue, and several dry Ray-Cassidy were placed on top. LABORATORY DATA: White count 6500, hemoglobin 14.3. Electrolytes: Sodium 138, potassium 3.8, chloride 101, CO2 27, BUN 7, creatinine 0.5, glucose 227, calcium 9. Microbiology from the wound: He had group B beta strep. IMPRESSION: SIGNIFICANT IMPROVEMENT OVERNIGHT. PLAN: There is no need to debride anything sharply today. I think the Santyl is helping. Dr. Heath will evaluate him again in the morning and decide whether his care can be managed locally or he will need to be referred. Dr. Heath is going to check with the wound clinic locally to see if they can help with managing his care. I will not be on rotation until February 05, so Dr. Heath will assume care and coordinate his management at this point. DICTATING PHYSICIAN: DAPHNIE TAVERAS M.D. [id number] PHY#: [id number] ID: [id number] JOB#: [id number] ACCT: [id number] cc: >
--- NOTE | 2017-01-24 10:59 | PROGRESS NOTE E ---
Progress Note NAME: LIZ MUNGUIA : 1975 AGE: 41Y DATE: 01/24/2017 ROOM: 317 SUBJECTIVE: Patient's wound was checked at bedside with Dr. Oglesby. Wound looks very good and starting granulation tissue. Patient is afebrile and white count remains normal. A Santyl was placed and the new wet-to-dry dressing placed on top done by Dr. Oglesby. PLAN: 1. The plan is to continue with the Santyl dressing b.i.d. 2. Reevaluate the wound tomorrow morning as far as possible need for transfer to [facility]. Patient would like to stay at [facility] if possible. I may want to ask the wound care doctor to evaluate the wound to justify to keep him here because it might take a long time for the wound to heal. 3. At any rate, continue with IV antibiotics and recheck his white count and blood sugar in the morning. Of note, the urologist will be off starting tomorrow and I am not sure if there is another urologist coming, so that should be another consideration for possible transfer. DICTATING PHYSICIAN: KWAME ZEPEDA M.D. [id number] PHY#: [id number] ID: [id number] JOB#: [id number] ACCT: [id number] cc: >
[2017-01-24] MEDS: INSULIN REG, HUMAN 100 UNIT/ML 3 ML VIAL (PYX) SUBCUT PRN ×3 (11:11→23:16)
--- NOTE | 2017-01-24 11:35 | PDOC PROGRESS REPORT ---
Subjective Progress Note for:: 01/24/17 Subjective:: Patient has no new complaints. He reports his pain is well controlled. Patient reports a loose stool this morning. Patient denies shortness of breath, chest pain, nausea, vomiting, fever, chills , new onset weakness. Physical Exam Vital Signs: Temp Pulse Resp BP Pulse Ox 98.0 F 98 20 151/91 H 96 01/24/17 06:02 01/24/17 06:02 01/24/17 06:02 01/24/17 06:02 01/24/17 06:02 Intake & Output 01/23/17 01/24/17 01/25/17 06:59 06:59 06:59 Intake Total 6375 5164 Output Total 6200 5380 Balance 175 -216 Weight 116.2 kg 117.3 kg Exam: GENERAL: obese, A+Ox3 HEENT: Conjunctiva clear, nonicteric, moist mucous membranes, no JVD, midline trachea RESPIRATORY: CTAB CARDIAC: Regular rate and rhythm, no murmurs/gallops/rubs ABDOMEN: Soft, nondistended, nontender, positive bowel sounds, no rebound, no guarding EXTREMETIES: No cyanosis, clubbing; 1+edema NEUROLOGIC: Alert, oriented to person/place/time, CN's grossly intact, no focal deficits SKIN: No rash PSYCH: flat affect Results Laboratory Results: 01/24/17 04:34 01/24/17 04:34 01/24/17 01/24/17 04:34 04:34 WBC 6.5 RBC 4.98 Hgb 14.3 Hct 40.4 MCV 81 MCH 28.7 MCHC 35.4 RDW 12.4 Plt Count 296 Seg Neutrophils % 67.1 Lymphocytes % 21.0 Monocytes % 9.3 Eosinophils % 2.1 Basophils % 0.5 Absolute Neutrophils 4.3 Absolute Lymphocytes 1.4 Absolute Monocytes 0.6 Absolute Eosinophils 0.1 Absolute Basophils 0.0 Sodium 138.5 Potassium 3.8 Chloride 101 Carbon Dioxide 27 Anion Gap 11 BUN 7 Creatinine 0.52 Est GFR ( Amer) > 60 Est GFR (Non-Af Amer) > 60 Glucose 227 H Calcium 9.0 Impressions: Pelvis CT 01/21/17 17:18 IMPRESSION: FLUID COLLECTION IN THE RIGHT PERIANAL SOFT TISSUES SUSPICIOUS FOR ABSCESS. Assessment & Plan - Diagnosis (1) Perineal abscess Is this a current diagnosis for this admission?: YesPlan: This is postoperative day #3 for I&D and now with return on 01/23/17. Patient met criteria for sepsis on admission. Currently on vancomycin and ertapenem. His cultures have returned group B streptococcus and I have placed patient on Penicillin G for this. At this time, I defer all issues of pain management,antibiotic management, and appropriate treatment of this condition including discharge planning to the primary team. Have considered and am concerned for development of Anusha's gangrene and have discussed this with Dr. Heath, surgery. (2) Diabetes type 2, uncontrolled Qualifiers: Diabetes mellitus complication status: with unspecified complications Diabetes mellitus halfway insulin use: without halfway use Qualified Code(s): E11.8 - Type 2 diabetes mellitus with unspecified complications; E11.65 - Type 2 diabetes mellitus with hyperglycemia; Z79.4 - [facility] (current ) use of insulin Is this a current diagnosis for this admission?: YesPlan: Control improving. Hemoglobin A1c is 11.8. Continue patient on SSI. Increase lantus to 35units QHS. Patient on metformin and glipizide. ADA diet Diabetic nurse educator (3) HTN (hypertension) Qualifiers: Hypertension type: essential hypertension Qualified Code(s): I10 - Essential (primary) hypertension Is this a current diagnosis for this admission?: YesPlan: Fair control. Feel that some of his current hypertension is secondary to his pain/anxiety. Patient on lisinopril 20 mg p.o. twice daily. Will add norvasc QHS. (4) HLD (hyperlipidemia) Qualifiers: Hyperlipidemia type: unspecified Qualified Code(s): E78.5 - Hyperlipidemia, unspecified Is this a current diagnosis for this admission?: YesPlan: Reported history of hyperlipidemia. Patient may have this checked as an outpatient. (5) Severe obesity (BMI 35.0-39.9) with comorbidity Is this a current diagnosis for this admission?: YesPlan: Advised to continue his past diet and exercise habits. - Time Time Spent with patient: 25-34 minutes Medications reviewed and adjusted accordingly: Yes
[2017-01-24] MEDS: OXYCODONE-ACETAMINOPHEN 5-325 MG TABLET PO PRN (15:41)
[2017-01-24] MEDS: INSULIN GLARGINE,HUM.REC.ANLOG 300 UNIT/3 ML INSULN.PEN SUBCUT SCH (23:14)
[2017-01-25] MEDS: PENICILLIN POTASSIUM IV SCH ×7 (00:13→23:46)
[2017-01-25] MEDS: WATER IV SCH ×7 (00:13→23:46)
[2017-01-25] MEDS: DEXTROSE 5% IV SCH ×7 (00:13→23:46)
[2017-01-25 05:00] LABS: ABSOLUTE BASOPHILS # (AUTO) 0.1 10^3/uL (0.0-0.2); ABSOLUTE EOSINOPHILS # (AUTO) 0.1 10^3/uL (0.0-0.6); ABSOLUTE LYMPHOCYTES (AUTO) 1.5 10^3/uL (0.5-4.7); ABSOLUTE MONOCYTES (AUTO) 0.6 10^3/uL (0.1-1.4); ABSOLUTE NEUT (AUTO) 5.4 10^3/uL (1.7-8.2); BASOPHILS % (AUTO) 0.7 % (0-2); EOSINOPHILS % (AUTO) 1.5 % (0-6); HEMATOCRIT 39.1 % (37.9-51.0); HEMOGLOBIN 13.6 g/dL (13.5-17.0); HGB HCT DIFFERENCE 1.7; MEAN CORPUSCULAR HEMOGLOBIN 28.3 pg (27.0-33.4); MEAN CORPUSCULAR HGB CONC 34.9 g/dL (32.0-36.0); MEAN CORPUSCULAR VOLUME 81 fl (80-97); MONOCYTES % (AUTO) 8.4 % (3-13); RED BLOOD COUNT 4.82 10^6/uL (4.35-5.55); RED CELL DISTRIBUTION WIDTH 12.5 % (11.5-14.0); SEGMENTED NEUTROPHILS % (AUTO) 70.4 % (42-78); WHITE BLOOD COUNT 7.6 10^3/uL (4.0-10.5)
[2017-01-25 05:15] LABS: ANION GAP 11 (5-19); BLOOD UREA NITROGEN 8 mg/dL (7-20); CALCIUM 8.8 mg/dL (8.4-10.2); CARBON DIOXIDE 27 mmol/L (22-30); CHLORIDE 101 mmol/L (98-107); CREATININE RESULT 0.43 mg/dL (0.52-1.25); GLUCOSE 200 mg/dL (75-110); POTASSIUM 3.3 mmol/L (3.6-5.0); SODIUM 138.6 mmol/L (137-145)
[2017-01-25] MEDS ORDERED: ONDANSETRON HCL INJ/PF 4 MG/2 ML SDV IV PRN (07:39)
[2017-01-25] MEDS: MORPHINE SULFATE 10 MG/ML INJ IV PRN ×2 (07:51→23:01)
[2017-01-25] MEDS: METFORMIN HCL 500 MG TABLET PO SCH ×2 (07:53→18:08)
[2017-01-25] MEDS: ERTAPENEM SODIUM 1 GM in NORMAL SALINE 50 ML IV SCH (07:53)
[2017-01-25] MEDS: INSULIN REG, HUMAN 100 UNIT/ML 3 ML VIAL (PYX) SUBCUT PRN ×3 (08:41→18:10)
[2017-01-25] MEDS: HYDROCHLOROTHIAZIDE 25 MG TABLET PO SCH (09:03)
[2017-01-25] MEDS: OXYCODONE-ACETAMINOPHEN 5-325 MG TABLET PO PRN ×2 (09:04→18:09)
[2017-01-25] MEDS: LISINOPRIL 10 MG TABLET PO SCH ×2 (09:05→22:34)
[2017-01-25] MEDS: LACTOBACILLUS ACIDOPHILUS 250 MG TAB PO SCH ×2 (09:06→18:09)
[2017-01-25] MEDS: ENOXAPARIN SODIUM INJ 40 MG/0.4 ML DISP.SYRIN SUBCUT SCH (09:07)
[2017-01-25] MEDS: COLLAGENASE CLOSTRIDIUM HIST. OINT 30 GM TOP SCH ×2 (09:10→23:39)
[2017-01-25] MEDS ORDERED: DOCUSATE SODIUM 100 MG CAPSULE PO PRN (10:37)
--- NOTE | 2017-01-25 10:42 | PDOC PROGRESS REPORT ---
Subjective Progress Note for:: 01/25/17 Subjective:: Patient is complaining of some pain minimal drainage; Melendrez catheter remains inserted. Patient still on intravenous narcotics for pain. Physical Exam Vital Signs: Temp Pulse Resp BP Pulse Ox 98.3 F 94 18 160/99 H 93 01/25/17 07:19 01/25/17 07:19 01/25/17 07:19 01/25/17 07:19 01/25/17 07:19 Intake & Output 01/24/17 01/25/17 01/26/17 06:59 06:59 06:59 Intake Total 5164 3605 Output Total 5380 2300 Balance -216 1305 Weight 117.3 kg 117.5 kg General appearance: PRESENT: no acute distress GI/Abdominal exam: PRESENT: other - Wound is ended. It is open granulating with minimal fibrinous debris posteriorly. There is no foul smell. There is no active discharge. The scrotum is boggy but not tight. Erythema essentially resolved. Results Laboratory Results: 01/25/17 04:01 01/25/17 04:01 01/25/17 01/25/17 04:01 04:01 WBC 7.6 RBC 4.82 Hgb 13.6 Hct 39.1 MCV 81 MCH 28.3 MCHC 34.9 RDW 12.5 Plt Count 297 Seg Neutrophils % 70.4 Lymphocytes % 19.0 Monocytes % 8.4 Eosinophils % 1.5 Basophils % 0.7 Absolute Neutrophils 5.4 Absolute Lymphocytes 1.5 Absolute Monocytes 0.6 Absolute Eosinophils 0.1 Absolute Basophils 0.1 Sodium 138.6 Potassium 3.3 L Chloride 101 Carbon Dioxide 27 Anion Gap 11 BUN 8 Creatinine 0.43 L Est GFR ( Amer) > 60 Est GFR (Non-Af Amer) > 60 Glucose 200 H Calcium 8.8 Impressions: Pelvis CT 01/21/17 17:18 IMPRESSION: FLUID COLLECTION IN THE RIGHT PERIANAL SOFT TISSUES SUSPICIOUS FOR ABSCESS. Assessment & Plan - Diagnosis (1) Perineal abscess Is this a current diagnosis for this admission?: YesPlan: 1. The wound making satisfactory progress. Evidence of sepsis at this point and no evidence of need for further operative debridement. Recommendations . Colace twice daily; order written 2. Ordered shower; may be challenging for this patient still on IV narcotics 3. Hopefully can consolidate antibiotics, and sent patient home on outpatient basis with follow-up with [facility]. I discussed the above with Dr. Armstrong, hospitalist.
[2017-01-25] MEDS: GLIPIZIDE 10 MG TABLET PO SCH (18:09)
--- NOTE | 2017-01-25 20:03 | PDOC PROGRESS REPORT ---
Subjective Progress Note for:: 01/25/17 Subjective:: Patient has no new complaints. He reports his pain is well controlled. Patient reports a stool this morning. Patient denies shortness of breath, chest pain, nausea, vomiting,, diarrhea fever, chills, new onset weakness. Physical Exam Vital Signs: Temp Pulse Resp BP Pulse Ox 98.5 F 93 20 161/97 H 93 01/25/17 03:25 01/25/17 03:25 01/25/17 03:25 01/25/17 03:25 01/25/17 03:25 Intake & Output 01/24/17 01/25/17 01/26/17 06:59 06:59 06:59 Intake Total 5164 3605 Output Total 5380 2300 Balance -216 1305 Weight 117.3 kg 117.5 kg Exam: GENERAL: obese, A+Ox3 HEENT: Conjunctiva clear, nonicteric, moist mucous membranes, no JVD, midline trachea RESPIRATORY: CTAB CARDIAC: Regular rate and rhythm, no murmurs/gallops/rubs ABDOMEN: Soft, nondistended, nontender, positive bowel sounds, no rebound, no guarding EXTREMETIES: No cyanosis, clubbing, edema NEUROLOGIC: Alert, oriented to person/place/time, CN's grossly intact, no focal deficits SKIN: No rash PSYCH: flat affect Results Laboratory Results: 01/25/17 04:01 01/25/17 04:01 01/25/17 01/25/17 04:01 04:01 WBC 7.6 RBC 4.82 Hgb 13.6 Hct 39.1 MCV 81 MCH 28.3 MCHC 34.9 RDW 12.5 Plt Count 297 Seg Neutrophils % 70.4 Lymphocytes % 19.0 Monocytes % 8.4 Eosinophils % 1.5 Basophils % 0.7 Absolute Neutrophils 5.4 Absolute Lymphocytes 1.5 Absolute Monocytes 0.6 Absolute Eosinophils 0.1 Absolute Basophils 0.1 Sodium 138.6 Potassium 3.3 L Chloride 101 Carbon Dioxide 27 Anion Gap 11 BUN 8 Creatinine 0.43 L Est GFR ( Amer) > 60 Est GFR (Non-Af Amer) > 60 Glucose 200 H Calcium 8.8 Impressions: Pelvis CT 01/21/17 17:18 IMPRESSION: FLUID COLLECTION IN THE RIGHT PERIANAL SOFT TISSUES SUSPICIOUS FOR ABSCESS. Assessment & Plan - Diagnosis (1) Perineal abscess Is this a current diagnosis for this admission?: YesPlan: This is postoperative day #4 for I&D and now with return on 01/23/17. Patient met criteria for sepsis on admission. Currently on vancomycin and ertapenem penicillin g. His cultures have returned group B streptococcus. At this time, I defer all issues of pain management,antibiotic management, and appropriate treatment of this condition including discharge planning to the primary team. Have considered and am concerned for development of Anusha's gangrene and have discussed this with Dr. Gray, surgery. (2) Diabetes type 2, uncontrolled Qualifiers: Diabetes mellitus complication status: with unspecified complications Diabetes mellitus terminal operations supervisor insulin use: without care home use Qualified Code(s): E11.8 - Type 2 diabetes mellitus with unspecified complications; E11.65 - Type 2 diabetes mellitus with hyperglycemia; Z79.4 - [facility] (current ) use of insulin Is this a current diagnosis for this admission?: YesPlan: Control improving. Hemoglobin A1c is 11.8. Continue patient on SSI. Lantus 35units QHS. Patient on metformin and glipizide. ADA diet Diabetic nurse educator (3) HTN (hypertension) Qualifiers: Hypertension type: essential hypertension Qualified Code(s): I10 - Essential (primary) hypertension Is this a current diagnosis for this admission?: YesPlan: Fair control. Feel that some of his current hypertension is secondary to his pain/anxiety. Patient on lisinopril 20 mg p.o. twice daily. Will add HCTZ. (4) HLD (hyperlipidemia) Qualifiers: Hyperlipidemia type: unspecified Qualified Code(s): E78.5 - Hyperlipidemia, unspecified Is this a current diagnosis for this admission?: YesPlan: Reported history of hyperlipidemia. Patient may have this checked as an outpatient. (5) Severe obesity (BMI 35.0-39.9) with comorbidity Is this a current diagnosis for this admission?: Yes
[2017-01-25] MEDS: INSULIN GLARGINE,HUM.REC.ANLOG 300 UNIT/3 ML INSULN.PEN SUBCUT SCH (22:34)
[2017-01-26] MEDS: PENICILLIN POTASSIUM IV SCH ×6 (03:21→23:55)
[2017-01-26] MEDS: WATER IV SCH ×6 (03:21→23:55)
[2017-01-26] MEDS: DEXTROSE 5% IV SCH ×6 (03:21→23:55)
[2017-01-26] MEDS: OXYCODONE-ACETAMINOPHEN 5-325 MG TABLET PO PRN ×4 (03:55→17:21)
[2017-01-26] MEDS: METFORMIN HCL 500 MG TABLET PO SCH ×2 (08:01→17:20)
[2017-01-26] MEDS: HYDROCHLOROTHIAZIDE 25 MG TABLET PO SCH (10:09)
[2017-01-26] MEDS: LISINOPRIL 10 MG TABLET PO SCH ×2 (10:10→21:54)
[2017-01-26] MEDS: GLIPIZIDE 10 MG TABLET PO SCH ×2 (10:10→17:19)
[2017-01-26] MEDS: LACTOBACILLUS ACIDOPHILUS 250 MG TAB PO SCH ×2 (10:10→17:20)
[2017-01-26] MEDS: ENOXAPARIN SODIUM INJ 40 MG/0.4 ML DISP.SYRIN SUBCUT SCH (10:11)
[2017-01-26] MEDS: COLLAGENASE CLOSTRIDIUM HIST. OINT 30 GM TOP SCH ×2 (10:14→22:30)
--- NOTE | 2017-01-26 10:54 | PDOC PROGRESS REPORT ---
Subjective Progress Note for:: 01/26/17 Subjective:: Patient states that he is doing well. He is eating and drinking. He is ambulating without difficulty. He denies fever, chills, headache, chest pain, shortness of breath, nausea, vomiting. Physical Exam Vital Signs: Temp Pulse Resp BP Pulse Ox 98.2 F 80 16 143/88 H 97 01/26/17 07:12 01/26/17 07:12 01/26/17 07:12 01/26/17 07:12 01/26/17 07:12 Intake & Output 01/25/17 01/26/17 01/27/17 06:59 06:59 06:59 Intake Total 3605 1218 Output Total 2300 3375 Balance 1305 -2157 Weight 117.5 kg 117 kg GENERAL: No acute distress HEENT: Conjunctiva clear, nonicteric, moist mucous membranes, no JVD, midline trachea RESPIRATORY: Clear to auscultation bilaterally, no wheezes, no rhonchi CARDIAC: Regular rate and rhythm, no murmurs/gallops/rubs ABDOMEN: Soft, nondistended, nontender, positive bowel sounds, no rebound, no guarding EXTREMETIES: No edema, cyanosis, clubbing NEUROLOGIC: Alert, oriented to person/place/time, CN's grossly intact, no focal deficits SKIN: No rash, wounds PSYCH: Normal mood, normal affect Results Laboratory Results: 01/25/17 04:01 01/25/17 04:01 Impressions: Pelvis CT 01/21/17 17:18 IMPRESSION: FLUID COLLECTION IN THE RIGHT PERIANAL SOFT TISSUES SUSPICIOUS FOR ABSCESS. Assessment & Plan - Diagnosis (1) Abscess of anal and rectal regions Is this a current diagnosis for this admission?: YesPlan: Status post I&D on 01/23/2017. Case discussed with surgery today. Continue IV antibiotics 24 hours. Possibly discharge home on oral antibiotic in the morning. Outpatient follow-up at wound clinic with Dr. Andres. Continue IV penicillin G. Wound culture growing group D Streptococcus and staph epidermidis (2) Diabetes type 2, uncontrolled Qualifiers: Diabetes mellitus complication status: with unspecified complications Diabetes mellitus senior care insulin use: without truck terminal manager use Qualified Code(s): E11.8 - Type 2 diabetes mellitus with unspecified complications; E11.65 - Type 2 diabetes mellitus with hyperglycemia; Z79.4 - truck terminal manager (current ) use of insulin Is this a current diagnosis for this admission?: YesPlan: Blood glucose now under good control on Lantus, glipizide, metformin. Hemoglobin A1c 11.8 indicating poor outpatient control. (3) HTN (hypertension) Qualifiers: Hypertension type: essential hypertension Qualified Code(s): I10 - Essential (primary) hypertension Is this a current diagnosis for this admission?: YesPlan: Continue hydrochlorothiazide and lisinopril. - Time Time Spent with patient: 25-34 minutes Anticipated discharge: Home Within: within 24 hours
[2017-01-26] MEDS: INSULIN REG, HUMAN 100 UNIT/ML 3 ML VIAL (PYX) SUBCUT PRN ×2 (12:07→21:54)
[2017-01-26] MEDS: MORPHINE SULFATE 10 MG/ML INJ IV PRN ×2 (13:36→22:30)
--- NOTE | 2017-01-26 14:58 | PROGRESS NOTE E ---
Progress Note NAME: LIZ MUNGUIA : 1975 AGE: 41Y DATE: 01/23/2017 ROOM: 317 SUBJECTIVE: The patient had the wound checked at bedside. OBJECTIVE: SKIN: Dressing was removed and the wound itself looks quite pink with no discharge or necrotic tissue noted. A layer of Santyl was placed on the wound and dressed with Betadine-soaked gauze. The Melendrez catheter was just removed and we will observe him today and also give at least another IV antibiotic for today and possibly discharge tomorrow to be see at [facility] in 2 days. We will give him a p.o. antibiotic prior to discharge. DICTATING PHYSICIAN: KWAME ZEPEDA M.D. [id number] PHY#: [id number] ID: [id number] JOB#: [id number] ACCT: [id number] cc: >
[2017-01-26] MEDS: INSULIN GLARGINE,HUM.REC.ANLOG 300 UNIT/3 ML INSULN.PEN SUBCUT SCH (21:54)
[2017-01-27] MEDS: OXYCODONE-ACETAMINOPHEN 5-325 MG TABLET PO PRN (03:23)
[2017-01-27] MEDS: DEXTROSE 5% IV SCH ×2 (03:24→09:28)
[2017-01-27] MEDS: PENICILLIN POTASSIUM IV SCH ×2 (03:24→09:28)
[2017-01-27] MEDS: WATER IV SCH ×2 (03:24→09:28)
[2017-01-27 04:56] LABS: HEMATOCRIT 43.9 % (37.9-51.0); HEMOGLOBIN 15.3 g/dL (13.5-17.0); MEAN CORPUSCULAR HEMOGLOBIN 28.2 pg (27.0-33.4); MEAN CORPUSCULAR HGB CONC 34.9 g/dL (32.0-36.0); MEAN CORPUSCULAR VOLUME 81 fl (80-97); RED BLOOD COUNT 5.42 10^6/uL (4.35-5.55); RED CELL DISTRIBUTION WIDTH 12.1 % (11.5-14.0); WHITE BLOOD COUNT 9.2 10^3/uL (4.0-10.5)
[2017-01-27 05:16] LABS: ANION GAP 13 (5-19); BLOOD UREA NITROGEN 8 mg/dL (7-20); CALCIUM 9.5 mg/dL (8.4-10.2); CARBON DIOXIDE 34 mmol/L (22-30); CHLORIDE 92 mmol/L (98-107); CREATININE RESULT 0.51 mg/dL (0.52-1.25); GLUCOSE 177 mg/dL (75-110); POTASSIUM 3.4 mmol/L (3.6-5.0); SODIUM 138.6 mmol/L (137-145)
[2017-01-27] MEDS ORDERED: POTASSIUM CHLORIDE 10 MEQ TABLET.SA PO ONE (07:37)
[2017-01-27] MEDS: ENOXAPARIN SODIUM INJ 40 MG/0.4 ML DISP.SYRIN SUBCUT SCH (09:24)
[2017-01-27] MEDS: HYDROCHLOROTHIAZIDE 25 MG TABLET PO SCH (09:25)
[2017-01-27] MEDS: GLIPIZIDE 10 MG TABLET PO SCH (09:26)
[2017-01-27] MEDS: METFORMIN HCL 500 MG TABLET PO SCH (09:26)
[2017-01-27] MEDS: LISINOPRIL 10 MG TABLET PO SCH (09:26)
[2017-01-27] MEDS: COLLAGENASE CLOSTRIDIUM HIST. OINT 30 GM TOP SCH (09:27)
[2017-01-27] MEDS: LACTOBACILLUS ACIDOPHILUS 250 MG TAB PO SCH (09:27)
[2017-01-27] MEDS ORDERED: LEVOFLOXACIN 750 MG TABLET PO SCH (12:00)
[2017-01-27] MEDS: MORPHINE SULFATE 10 MG/ML INJ IV PRN (14:22)
[2017-01-27 15:42] VITALS: BP 175/98
--- NOTE | 2017-01-27 15:44 | OPERATIVE REPORT E ---
Operative Report NAME: LIZ MUNGUIA : 1975 AGE: 41Y DATE OF SURGERY: ROOM: 317 PREOPERATIVE DIAGNOSIS: Necrotic tissue along perineal wound site. POSTOPERATIVE DIAGNOSIS: Necrotic tissue along perineal wound site. OPERATION: Sharp dissection of necrotic tissue of the perineal wound. SURGEON: KAWME ZEPEDA M.D. PROCEDURE: After the patient was given IV morphine, the perineal area was then inspected. Patient has been getting Santyl dressings twice a day. There was some necrotic tissue primarily along the bottom part of the perineal wound, and this was then sharply excised with the use of scissors. It was debrided to the point of bleeding. There were a couple of other areas on the mid-part of the wound that also had some necrotic tissue that was sharply debrided. The wound looks good with starting granulation tissue. Continued dressing with Santyl was done. Patient planned to be discharged today and to continue with Santyl dressings at home twice a day. He is to continue on p.o. Levaquin and to be followed up in [facility] in 2 days, 01/29/2017. DICTATING PHYSICIAN: KWAME ZEPEDA M.D. [id number] PHY#: [id number] ID: [id number] JOB#: [id number] ACCT: [id number] cc:KWAME ZEPEDA M.D. >
--- NOTE | 2017-01-27 16:09 | PDOC PROGRESS REPORT ---
Subjective Progress Note for:: 01/27/17 Subjective:: No new complaints. Patient denies fever, chills, headache, new focal weakness, chest pain, shortness of breath, abdominal pain, nausea, vomiting, diarrhea, constipation. Physical Exam Vital Signs: Temp Pulse Resp BP Pulse Ox 98.5 F 115 H 18 175/98 H 98 01/27/17 15:36 01/27/17 15:36 01/27/17 15:36 01/27/17 15:36 01/27/17 15:36 Intake & Output 01/26/17 01/27/17 01/28/17 06:59 06:59 06:59 Intake Total 1218 2951 1037 Output Total 3375 2350 Balance -2157 601 1037 Weight 117 kg 113.9 kg GENERAL: No acute distress HEENT: Conjunctiva clear, nonicteric, moist mucous membranes, no JVD, midline trachea RESPIRATORY: Clear to auscultation bilaterally, no wheezes, no rhonchi CARDIAC: Regular rate and rhythm, no murmurs/gallops/rubs ABDOMEN: Soft, nondistended, nontender, positive bowel sounds, no rebound, no guarding EXTREMETIES: No edema, cyanosis, clubbing NEUROLOGIC: Alert, oriented to person/place/time, CN's grossly intact, no focal deficits SKIN: No rash, wounds PSYCH: Normal mood, normal affect Results Laboratory Results: 01/27/17 04:28 01/27/17 04:28 01/27/17 01/27/17 04:28 04:28 WBC 9.2 RBC 5.42 Hgb 15.3 Hct 43.9 MCV 81 MCH 28.2 MCHC 34.9 RDW 12.1 Plt Count 347 Sodium 138.6 Potassium 3.4 L Chloride 92 L Carbon Dioxide 34 H Anion Gap 13 BUN 8 Creatinine 0.51 L Est GFR ( Amer) > 60 Est GFR (Non-Af Amer) > 60 Glucose 177 H Calcium 9.5 Impressions: Pelvis CT 01/21/17 17:18 IMPRESSION: FLUID COLLECTION IN THE RIGHT PERIANAL SOFT TISSUES SUSPICIOUS FOR ABSCESS. Assessment & Plan - Diagnosis (1) Abscess of anal and rectal regions Is this a current diagnosis for this admission?: YesPlan: Status post I&D on 01/23/2017. Debrided again on 01/27/2017. Discharge home on oral antibiotic. Outpatient follow-up at wound clinic with Dr. Andres. (2) Diabetes type 2, uncontrolled Qualifiers: Diabetes mellitus complication status: with unspecified complications Diabetes mellitus senior living insulin use: without exterminator helper use Qualified Code(s): E11.8 - Type 2 diabetes mellitus with unspecified complications; E11.65 - Type 2 diabetes mellitus with hyperglycemia; Z79.4 - exterminator helper (current ) use of insulin Is this a current diagnosis for this admission?: YesPlan: Discharge home on Lantus and metformin. (3) HTN (hypertension) Qualifiers: Hypertension type: essential hypertension Qualified Code(s): I10 - Essential (primary) hypertension Is this a current diagnosis for this admission?: Yes - Time Time Spent with patient: 25-34 minutes Disposition: Hospital medicine service will sign off consult. Surgery to discharge patient home today.
--- NOTE | 2017-01-27 17:43 | DISCHARGE SUMMARY E ---
Discharge Summary NAME: LIZ MUNGUIA : 1975 AGE: 41Y ADMITTED: 01/21/2017 DISCHARGED: 01/27/2017 FINAL DIAGNOSES: 1. Necrotizing fascitis of the perineal area. 2. Diabetes mellitus type 2. 3. Hypertension. PROCEDURES DONE: On 01/21/2017, perineal debridement by Dr. Desai and bedside debridement by Dr. Oglesby. On 01/23/2017, debridement of perineal wound in the OR by Dr. Oglesby with a diagnosis of necrotizing fascitis. He debrided an area of 12 cm x 10 cm. HOSPITAL COURSE: Patient started on IV antibiotics on admission. The patient was then continued on Santyl dressing of the wound twice a day. On the day of discharge, the wound was evaluated and noted to have a small amount of necrotic tissue towards the rectal side which was debrided sharply and a few areas of the mid part that were also sharply debrided at bedside. Santyl dressing was continued. The patient was then discharged improved on 01/27/2017. PLAN: 1. Continue on Santyl wound dressings twice a day. 2. Continue with Levaquin 750 mg p.o. daily. 3. Continue with Lantus insulin. 4. Follow up [facility] on 01/29/2017. The patient will also have a home visit by a nurse to check the wound and to change the dressings. DICTATING PHYSICIAN: KWAME ZEPEDA M.D. [id number] PHY#: [id number] ID: [id number] JOB#: [id number] ACCT: [id number] cc:KWAME ZEPEDA M.D. [facility],
[2017-01-27] MEDS ORDERED: INSULIN GLARGINE,HUM.REC.ANLOG 300 UNIT/3 ML INSULN.PEN SUBCUT SCH (22:00)
== END 2017-01-27 17:04 | disposition home or self-care (01) | DRG 464 ==
LOC: ER 13:14 → EH 19:38 → UNDOADMIN 19:38 → EH 23:35 → 3W 01-22 01:55
PROVIDERS: ATTEND Surgery
PROC: 0JBB0ZZ Excision of Perineum Subcutaneous Tissue and Fascia, Open Approach (ICD-10-PCS; 2017-01-21)
PROC: 0JBB0ZZ Excision of Perineum Subcutaneous Tissue and Fascia, Open Approach (ICD-10-PCS; principal; 2017-01-21 21:00)
PROC: 0JBB0ZZ Excision of Perineum Subcutaneous Tissue and Fascia, Open Approach (ICD-10-PCS; 2017-01-23)
PROC: 0JDB0ZZ Extraction of Perineum Subcutaneous Tissue and Fascia, Open Approach (ICD-10-PCS; 2017-01-27)
DX: M72.6 Necrotizing fasciitis (principal); L02.215 Cutaneous abscess of perineum; E11.65 Type 2 diabetes mellitus with hyperglycemia; E66.01 Morbid (severe) obesity due to excess calories; I10 Essential (primary) hypertension; N50.89 Other specified disorders of the male genital organs; B95.1 Streptococcus, group B, as the cause of diseases classified elsewhere; B95.2 Enterococcus as the cause of diseases classified elsewhere; B95.7 Other staphylococcus as the cause of diseases classified elsewhere; M19.90 Unspecified osteoarthritis, unspecified site; E78.5 Hyperlipidemia, unspecified; Z68.37 Body mass index [BMI] 37.0-37.9, adult; Z79.4 Long term (current) use of insulin; Z87.891 Personal history of nicotine dependence; Z82.49 Family history of ischemic heart disease and other diseases of the circulatory system; Z80.9 Family history of malignant neoplasm, unspecified
CPT/HCPCS: 36415; 72193; 80048; 80053; 80202; 81001; 82010; 82803; 82962; 83036; 83605; 85025; 85027; 87040; 87070; 87075; 87077; 87186; 87205; 902; 920; 93005; 93010; 96365; 96366; 96368; 96375; 99285; A6266; J0131; J1170; J1335; J1650; J1815; J2250; J2270; J2405; J2540; J2704; J2765; J3010; J3370; J3490; J7030; J7060